=== PATIENT | female | born 1980 | race Caucasian/White ===

== ENCOUNTER 2019-10-02 15:36 | Emergency (ER) | payer OTHER, SELFPAY ==
[2019-10-02 15:39] VITALS: BP 129/82; PULSE 89; RESP 14; TEMP 36.9; O2SAT 98
--- NOTE | 2019-10-02 17:27 | ED.SKABFB ---
HPI - Skin/Abscess/Foreign Bdy <GUI Magaña - Last Filed: 10/02/19 17:59> General Chief complaint: Skin/Abscess/Foreign Body Stated complaint: RASH Time Seen by Provider: 10/02/19 16:12 Source: patient Mode of arrival: Ambulatory Limitations: no limitations History of Present Illness HPI narrative: The patient is a 39-year-old female current smoker with history of to come up to presents with a chief complaint of a rash on the left side of her neck. She states it appeared 2-3 days ago. She states it is very painful, and she has shooting pain in the area of her rash. She complains of fatigue, generalized malaise, transient wooziness. She denies any fevers nausea vomiting or diarrhea. She denies any chest pain or shortness of breath. she has not followed up with primary care provider. She denies any rash in or near her eyes. Related Data Previous Rx's Medication Instructions Recorded norethindrone (contraceptive) 0.35 mg PO QDAY #1 pac 04/13/18 [Rain] prednisone 50 mg PO DAILY #5 tab 10/02/19 valacyclovir 1,000 mg PO TID 7 Days #21 tab 10/02/19 Allergies Allergy/AdvReac Type Severity Reaction Status Date / Time No Known Drug Allergies Allergy Unknown Unverified 02/09/18 12:44 [NO KNOWN DRUG ALLERGIES] Review of Systems <[facility] - Last Filed: 10/02/19 17:59> Review of Systems Narrative: GENERAL: See HPI HEENT: Denies sinus pain, ear pain, sore throat, difficulty swallowing, dizziness. RESPIRATORY: Denies dyspnea, cough, wheezing, hemoptysis, sputum. CARDIOVASCULAR: Denies chest pain, palpitations, orthopnea, edema, GASTROINTESTINAL: Denies nausea, vomiting, abdominal pain, diarrhea, constipation, melena. : Denies dysuria, frequency, incontinence, hematuria, urinary retention. MUSCULOSKELETAL: denies weakness, joint pain, or bony pain SKIN: See HPI NEUROLOGIC: Denies weakness, headache, numbness, change in speech, confusion, seizures, incoordination. PSYCHIATRIC: No concerning psychosocial issues. 12 point review of systems is negative except for those stated above Patient History <SORAIDA Magaña-BC - Last Filed: 10/02/19 17:59> Social History Smoking Status: Current every day smoker alcohol intake frequency: holidays/special occasions only Exam <SORAIDA Magaña- - Last Filed: 10/02/19 17:59> Narrative Exam Narrative: GENERAL: This is a well-nourished, well-developed patient, no acute distress HEAD: Atraumatic. Normocephalic. No temporal or scalp tenderness. EYES: Pupils equal round and reactive. Extraocular motions intact. No scleral icterus. No injection or drainage. ENT: Nose without bleeding, purulent drainage or septal hematoma. Throat without erythema, tonsillar hypertrophy or exudate. Uvula midline. Airway patent. NECK: Trachea midline. No JVD or lymphadenopathy. Supple, nontender, no meningeal signs. CARDIOVASCULAR: Regular rate and rhythm without murmurs, gallops, or rubs. RESPIRATORY: Clear to auscultation. Breath sounds equal bilaterally. No wheezes, rales, or rhonchi. No cough. No increased respiratory effort. No accessory muscle use. EXTREMITIES: No clubbing, cyanosis, or edema. No joint tenderness, effusion, or edema noted. BACK: Nontender without deformity or crepitance. No flank tenderness. NEURO: AOx3. SKIN: Diffuse vesicular lesions noted on right side of head down hairline to neck. Some crusting noted. no lesions near eye. No drainage. Initial Vital Signs Initial Vital Signs: Vital Signs Temperature 98.5 F 10/02/19 15:39 Pulse Rate 89 10/02/19 15:39 Respiratory Rate 14 10/02/19 15:39 Blood Pressure 129/82 10/02/19 15:39 Pulse Oximetry 98 10/02/19 15:39 <Srinivas Nobles DO - Last Filed: 10/02/19 17:59> Initial Vital Signs Initial Vital Signs: Vital Signs Temperature 98.5 F 10/02/19 15:39 Pulse Rate 89 10/02/19 15:39 Respiratory Rate 14 10/02/19 15:39 Blood Pressure 129/82 10/02/19 15:39 Pulse Oximetry 98 10/02/19 15:39 Scores <GUI Magaña - Last Filed: 10/02/19 17:59> GCS She[place]har coma scale eye opening: Spontaneous [place] coma scale verbal response: Orientated [place] coma scale motor response: Obey commands [place] coma scale total score: 15 Course <Shila ShoemakerSORAIDA-BC - Last Filed: 10/02/19 17:59> Vital Signs Vital signs: Vital Signs - 8 hr 10/02/19 15:39 Temperature 98.5 F Pulse Rate 89 Respiratory Rate 14 Blood Pressure 129/82 Pulse Oximetry 98 <Srinivas NoblesDO - Last Filed: 10/02/19 17:59> Vital Signs Vital signs: Vital Signs - 8 hr 10/02/19 15:39 Temperature 98.5 F Pulse Rate 89 Respiratory Rate 14 Blood Pressure 129/82 Pulse Oximetry 98 MDM - Skin/Abscess/Foreign Bdy <Shila ShoemakerSORAIDA-BC - Last Filed: 10/02/19 17:59> MDM Narrative Medical decision making narrative: The patient is a 31-year-old female who presents with a chief complaint of a rash on the left side of her head present for the past few days. She complains of generalized fatigue and malaise accompanying the rash. exam indicates shingles. She is placed most likely on a prednisone burst. She has no evidence of rash in her eye or any ocular involvement, but I did discuss at length that she needs to follow up with primary care provider or come back to the emergency department if that occurs. Discussed coming back to the ER for any acute concerns. Discussed that shingles is easily communicable. Encouraged follow-up with primary care provider. Patient has no questions or concerns upon discharge and states understanding of return precautions as well as follow-up care. Discharge Plan Departure Patient Disposition: Home Clinical Impression: Shingles Qualifiers: Herpes zoster complications: without complications Qualified Code(s): B02.9 - Zoster without complications Discharge Date/Time: 10/02/19 16:58 Instructions: Shingles (Herpes Zoster) (Alternative Therapy), DI for Shingles Activity Restrictions/Additional Instructions: I have sent 2 prescriptions to [facility]-1 is for prednisone to help with your pain and the 2nd is an antiviral to help with the shingles You can use calamine lotion over the rash. Please follow up with primary care provider. Please come back to emergency department for any acute concerns. Please remember that if you have any rash near your eye, be evaluated as soon as possible Prescriptions: New valacyclovir 1 gram tablet 1,000 mg PO TID 7 Days Qty: 21 RF: 0 prednisone 50 mg tablet 50 mg PO DAILY Qty: 5 RF: 0 No Action norethindrone (contraceptive) [Rain] 0.35 mg tablet 0.35 mg PO QDAY Qty: 1 RF: 6 Referrals: [facility] [Provider Group] <Srinivas Nobles, DO - Last Filed: 10/02/19 17:59> Sign Out Provider Sign Out Attestation: Dr Nobles Co-Sign Statement: I was available for consultation during this patient's emergency department visit. This chart is signed by myself for administrative purposes only. I did not have direct contact with this patient during this visit. They were seen independently by the APC.
== END 2019-10-02 16:58 | disposition home or self-care (01) ==
PROVIDERS: Emergency Provider Nurse Practitioner Family
DX: B02.9 Zoster without complications (principal)
CPT/HCPCS: 99282; 99283

== ENCOUNTER → 2021-07-18 10:59 | Outpatient (CLI) | payer OTHER, SELFPAY ==
[2021-07-18 13:03] LABS: Add Manual Diff / Slide Review NO; Basophils Absolute Auto 100 /uL (0-100); Basophils Percent Auto 0.9 % (0-2); Eosinophils Absolute Auto 300 /uL (0-450); Eosinophils Percent Auto 3.4 % (2-4); Hematocrit 40.4 % (36-46); Hemoglobin 13.6 g/dL (12.0-16.0); Lymphocytes Absolute Auto 2100 /uL (1100-4500); Lymphocytes Percent Auto 27.1 % (25-40); Mean Corpuscular HGB Conc 33.8 % (30-36); Mean Corpuscular Hemoglobin 32.7 PG (26-34); Mean Corpuscular Volume 96.9 fL (80-100); Monocytes Absolute Auto 600 /uL (0-900); Monocytes Percent Auto 7.8 % (3-14); Neutrophils Absolute Auto 4600 /uL (1500-7000); Neutrophils Percent Auto 60.8 % (50-75); Platelet Count 212 X10^3/uL (150-400); Red Blood Cell Count 4.17 X10^6/uL (4.0-5.2); Red Cell Distribution Width 12.6 % (11.6-14.8); White Blood Cell Count 7.6 X10^3/uL (4.5-11.0)
[2021-07-18 13:22] LABS: Alanine Aminotransferase 36 IU/L (<35); Albumin 4.3 g/dL (3.5-5.0); Albumin Globulin Ratio 1.6 (1.0-2.8); Alkaline Phosphatase 71 U/L (38-126); Aspartate Aminotransferase 42 IU/L (14-36); BUN Creatinine Ratio 17.6 (6-22); Bilirubin Total 0.4 mg/dL (0.2-1.3); Blood Urea Nitrogen 13 mg/dL (7-17); Calcium 9.3 mg/dL (8.4-10.2); Carbon Dioxide 29 mmol/L (22-32); Chloride 105 mmol/L (98-107); Cholesterol 190 mg/dL (140-199); Estimated Glomerular Filt Rate > 60.0 mL/min (>60); Globulin 2.7 g/dL (1.7-4.1); Glucose 86 mg/dL (70-100); HDL Cholesterol 77 mg/dL (40-60); HEMOLYSIS < 15 (0-50); LDL Cholesterol Calculated 77 mg/dL (<100); Potassium 4.1 mmol/L (3.4-5.1); Sodium 139 mmol/L (137-145); Triglycerides 181 mg/dL (35-150)
[2021-07-18 13:24] LABS: Hemoglobin A1C% w Est Avg Glu 4.8 % (4.0-6.0)
== END ==
PROVIDERS: PCP Family Medicine; Referring Provider Family Medicine; Visit Provider Family Medicine
DX: G43.909 Migraine, unspecified, not intractable, without status migrainosus (principal); F90.9 Attention-deficit hyperactivity disorder, unspecified type; M79.671 Pain in right foot; M79.672 Pain in left foot; F41.8 Other specified anxiety disorders
CPT/HCPCS: 36415; 80053; 80061; 83036; 84443; 85025

== ENCOUNTER 2022-06-28 19:18 | Emergency (ER) | payer OTHER, SELFPAY ==
[2022-06-28 19:29] VITALS: BP 147/89; PULSE 91; RESP 20; TEMP 36.3; O2SAT 100; BMI 28.2
--- NOTE | 2022-06-28 22:25 | ED_ITS ---
HPI - Eye Problem General Chief complaint: Eye Problems Stated complaint: Something in her eye Time Seen by Provider: 06/28/22 20:32 Source: patient Mode of arrival: Ambulatory History of Present Illness HPI Narrative: 41-year-old female daily smoker with history of chronic back pain, anorexia and ADHD presents with her for evaluation of left eye foreign body. She states that she is quite concerned that she may have a parasite and has seen multiple doctors and has had multiple evaluations for this. She had most recently been at the walk-in clinic and was given reassurance but came here for further evaluation. She states that she had concern about possible exposure to pinworms and had taken an [id number] medication and soon thereafter developed a discomfort in her left eye with some redness and drainage. She sta crystal that she did a significant amount of research and found that pinworms can exit through the eye and this is her concern. She denies any UV exposure or chemical exposure. She does wear contacts but they are not currently in. Related Data Home Medications Medication Instructions Recorded Confirmed clonidine HCl 0.1 mg tablet 0.1 mg PO DAILY PRN 04/09/21 09/09/21 lisdexamfetamine 70 mg capsule 70 mg PO DAILY 04/09/21 09/09/21 propranolol 10 mg tablet 10 mg PO DAILY 04/09/21 09/09/21 Previous Rx's Medication Instructions Recorded Prefest 1 mg (15)/1 mg-0.09 mg 1 tab PO DAILY #180 tabs 02/02/22 (15) tablet (estradiol-norgestimate) hydroxyzine HCl 25 mg tablet 25 mg PO TID PRN itching #30 tabs 06/15/22 permethrin 5 % topical cream 1 applic topical Q14D 2 doses #60 06/15/22 grams Allergies Allergy/AdvReac Type Severity Reaction Status Date / Time No Known Drug Allergies Allergy Unknown Verified 06/28/22 19:38 [NO KNOWN DRUG ALLERGIES] Review of Systems Review of Systems Narrative: GENERAL: Denies chills, fatigue, malaise, fever, sweats. HEENT: See HPI RESPIRATORY: Denies dyspnea, cough, wheezing, hemoptysis, sputum. CARDIOVASCULAR: Denies chest pain, palpitations, orthopnea, edema, GASTROINTESTINAL: Denies nausea, vomiting, abdominal pain, diarrhea, constipation, melena. : Denies dysuria, frequency, incontinence, hematuria, urinary retention. MUSCULOSKELETAL: denies weakness, joint pain, or bony pain SKIN: Denies rash, skin lesions, or other NEUROLOGIC: Denies weakness, headache, numbness, change in speech, confusion, seizures, incoordination. PSYCHIATRIC: No concerning psychosocial issues. 12 point review of systems is negative except for those stated above Patient History Medical History Abnormal Pap smear of cervix Acne ADHD Ankle pain Anorexia nervosa Chicken pox Chronic back pain Delusions of parasitosis Eczema Foot pain Fractures Headache Heavy menstrual period Migraine MRSA (methicillin resistant Staphylococcus aureus) Ovarian cyst Painful menstrual periods Scabies Surgical History Delivered by section Social History Smoking Status: Current every day smoker Smoking Status: Current every day smoker alcohol intake frequency: holidays/special occasions only Substance Use Type: does not use Exam Narrative Exam Narrative: GEN: AOx3 and in mild distress EYES: Pupils are equal, round, and reactive to light and accommodation. Extraoccular muscles are intact bilaterally. Left eye with slight injection, perhaps mild chemosis. No foreign body noted, upper lid everted and nothing visualized. Fluorescein instilled in no dye uptake is noted. Visual acuity noted in chart. Of note, patient had complete resolution of discomfort after 1 drop of proparacaine CHEST: Lungs are clear to auscultation bilaterally and free of wheezes, rales, or rhonchi. Heart rate is regular rhythm, there are no murmurs, clicks, rubs, or gallops. There is no chest wall tenderness. ABD: Abdomen is soft and nontender. There is no guarding or rebound. Bowel sounds are normal in all 4 quadrants. There is no mass or organomegaly. EXT: Full painless ROM of all extremities with no loss of sensation or strength. SKIN: Warm, pink, and dry. No erythema or rash Initial Vital Signs Initial Vital Signs: Vital Signs Temperature 97.3 F L 06/28/22 19:29 Pulse Rate 91 H 06/28/22 19:29 Respiratory Rate 20 06/28/22 19:29 Blood Pressure 147/89 H 06/28/22 19:29 Pulse Oximetry 100 06/28/22 19:29 Oxygen Delivery Method 06/28/22 19:29 Course Orders Ordered: Discontinued Medications Fluorescein Sodium (Fluorescein 1 Mg Strip) 1 mg EYE-RIGHT NOW ONE Stop: 06/28/22 20:33 Last Admin: 06/28/22 22:54 Dose: 1 mg Documented By: AT Ofloxacin (Ofloxacin 0.3% Ophth 5 Ml) 1 drops EYE-LEFT NOW ONE Stop: 06/28/22 22:41 Last Admin: 06/28/22 22:47 Dose: 1 drops Documented By: AT Proparacaine HCl (Proparacaine 0.5% Ophth Ellen) 1 drops EYE-RIGHT NOW ONE Stop: 06/28/22 20:33 Last Admin: 06/28/22 22:36 Dose: 1 drop Documented By: AT Vital Signs Vital signs: Vital Signs - 8 hr 06/28/22 19:29 Temperature 97.3 F L Pulse Rate 91 H Respiratory Rate 20 Blood Pressure 147/89 H Pulse Oximetry 100 Oxygen Delivery Method Room Air Discharge Plan Departure Patient Disposition: Home Clinical Impression: Acute conjunctivitis, left eye Instructions: DI for Conjunctivitis Activity Restrictions/Additional Instructions: *You have been diagnosed with [left eye conjunctivitis ] *What to do: *Please use 1-2 drops of the ofloxacin antibiotic drop in your left eye every 4 hours while awake until better. Additionally, as we discussed I gave you proparacaine which helps with the pain and discomfort. I diluted it down to 0.05% and you may use 1-2 drops of this in your left eye every 30-60 minutes as needed *Please follow up with your eye doctor 2-3 days, call for an appointment. Let them know you were seen in the Emergency Department and that we ask that you be seen in follow up. *Do not wear your contacts until your symptoms improve *Return to Emergency Department if you should have any new, worsening or concerning symptoms Prescriptions: No Action Prefest 1 mg (15)/1 mg- 0.09 mg (15) tablet 1 tab PO DAILY Qty: 180 3RF Vyvanse 70 mg capsule 70 mg PO DAILY propranolol 10 mg tablet 10 mg PO DAILY clonidine HCl 0.1 mg tablet 0.1 mg PO DAILY PRN hydroxyzine HCl 25 mg tablet 25 mg PO TID PRN (Reason: itching) Qty: 30 1RF permethrin 5 % cream 1 applic topical Q14D Qty: 60 1RF Rx Instructions: apply second treatment 14 days after first treatment if live lice remain Referrals: Bill Pineda MD [Primary Care Provider] - Visit Report Forms: Patient Portal/API
[2022-06-28] MEDS: PROPARACAINE 0.5% OPHTH SOL 1 DROPS EYE-RIGHT (22:36)
[2022-06-28] MEDS: OFLOXACIN 0.3% OPHTH 5 ML 1 DROPS EYE-LEFT (22:47)
[2022-06-28] MEDS: FLUORESCEIN 1 MG STRIP EYE-RIGHT (22:54)
== END 2022-06-28 22:56 | disposition home or self-care (01) ==
PROVIDERS: Emergency Provider Emergency Medicine; PCP Family Medicine
DX: H10.32 Unspecified acute conjunctivitis, left eye (principal)
CPT/HCPCS: 99282

== ENCOUNTER → 2022-07-03 12:45 | Outpatient (CLI) | payer OTHER, SELFPAY ==
[2022-07-03 18:04] LABS: Add Manual Diff / Slide Review NO; Basophils Absolute Auto 100 /uL (0-100); Basophils Percent Auto 1.2 % (0-2); Eosinophils Absolute Auto 500 /uL (0-450); Eosinophils Percent Auto 6.2 % (2-4); Hematocrit 38.3 % (36-46); Lymphocytes Absolute Auto 2100 /uL (1100-4500); Lymphocytes Percent Auto 26.3 % (25-40); Mean Corpuscular HGB Conc 33.8 % (30-36); Mean Corpuscular Hemoglobin 32.6 PG (26-34); Mean Corpuscular Volume 96.2 fL (80-100); Monocytes Absolute Auto 600 /uL (0-900); Monocytes Percent Auto 7.8 % (3-14); Neutrophils Absolute Auto 4800 /uL (1500-7000); Neutrophils Percent Auto 58.5 % (50-75); Platelet Count 238 X10^3/uL (150-400); Red Blood Cell Count 3.99 X10^6/uL (4.0-5.2); Red Cell Distribution Width 12.1 % (11.6-14.8); White Blood Cell Count 8.1 X10^3/uL (4.5-11.0)
[2022-07-03 18:24] LABS: Alanine Aminotransferase 44 IU/L (<35); Albumin 3.9 g/dL (3.5-5.0); Albumin Globulin Ratio 1.3 (1.0-2.8); Alkaline Phosphatase 71 U/L (38-126); Aspartate Aminotransferase 36 IU/L (14-36); BUN Creatinine Ratio 8.1 (6-22); Bilirubin Total 0.3 mg/dL (0.2-1.3); Blood Urea Nitrogen 6 mg/dL (7-17); C-Reactive Protein Quant 0.6 mg/dL (<1.0); Calcium 8.7 mg/dL (8.4-10.2); Carbon Dioxide 30 mmol/L (22-32); Chloride 103 mmol/L (98-107); Estimated Glomerular Filt Rate > 60 mL/min (>60); Globulin 2.9 g/dL (1.7-4.1); Glucose 108 mg/dL (70-100); HEMOLYSIS < 15 (0-50); Potassium 3.5 mmol/L (3.4-5.1); Sodium 137 mmol/L (137-145); Total Protein 6.8 g/dL (6.3-8.2)
[2022-07-03 18:50] LABS: Erythrocyte Sedimentation Rate 3 MM/HR (0-20)
[2022-07-03 18:53] LABS: TSH w/ Reflex to FT4 1.58 uIU/mL (0.47-4.68)
== END ==
PROVIDERS: PCP Family Medicine; Referring Provider Pediatrics; Visit Provider Pediatrics
DX: M25.511 Pain in right shoulder (principal); F90.9 Attention-deficit hyperactivity disorder, unspecified type; G43.909 Migraine, unspecified, not intractable, without status migrainosus; L29.9 Pruritus, unspecified
CPT/HCPCS: 36415; 80053; 84443; 85025; 85651; 86140

== ENCOUNTER → 2022-07-07 12:02 | Outpatient (CLI) | payer OTHER, SELFPAY ==
[2022-07-07 14:19] LABS: Occult Blood 1 Negative (Negative); Occult Blood 2 Negative (Negative); Occult Blood 3 Negative (Negative)
== END ==
PROVIDERS: Pediatrics; PCP Family Medicine; Referring Provider Family Medicine; Visit Provider Family Medicine
DX: M25.511 Pain in right shoulder (principal); R11.0 Nausea; R19.7 Diarrhea, unspecified
CPT/HCPCS: 82270; 87045; 87177; 87899

== ENCOUNTER 2022-09-25 16:16 | Emergency (ER) | payer OTHER, SELFPAY ==
[2022-09-25 16:34] VITALS: BP 115/67; PULSE 79; RESP 18; TEMP 36.3; O2SAT 100; BMI 26.6
--- NOTE | 2022-09-25 16:39 | DI.RAD.S_ITS ---
PROCEDURE: XR ANKLE LT MIN 3V INDICATIONS: Fall, swelling, bruising TECHNIQUE: 3 views of the ankle were acquired. COMPARISON: None. FINDINGS: Bones: Possible osseous fragment adjacent to the navicular bone. No dislocations. Ankle mortise is normally aligned. No suspicious bony lesions. Small plantar calcaneal spur. Soft tissues: Swelling at the lateral malleolus. No tibiotalar joint effusion. Achilles tendon appears normal. IMPRESSION: Possible avulsion fracture near the navicular bone. Lateral malleolus swelling. Dictated by: Galileo Patel M.D. on 09/25/2022 at 17:24 Approved by: Galileo Patel M.D. on 09/25/2022 at 17:26
--- NOTE | 2022-09-25 19:15 | PC.NURSE ---
pt states she stepped in a hole at home and fell, c/o pain in the left ankle and foot,with swelling noted to the outer part of the foot, no obvious deformity noted
--- NOTE | 2022-09-25 19:16 | DI.RAD.S_ITS ---
PROCEDURE: XR FOOT LT MIN 3V INDICATIONS: navicular fx ? TECHNIQUE: 3 views of the foot were acquired. COMPARISON: [facility], CR, XR ANKLE LT MIN 3V, 09/25/2022, 16:43. FINDINGS: Bones: No fractures or dislocations. No suspicious bony lesions. Mild degenerative joint disease. Node is a os peroneum. Calcaneal spurring. Probably bipartite lateral sesamoid. Soft tissues: No tibiotalar joint effusion. Achilles tendon appears normal. IMPRESSION: 1. No navicular fracture is identified. If clinical symptoms persist or clinical suspicion for pathology is high, a repeat examination in 7-10 days, or advanced imaging such as CT or MRI is suggested for further evaluation. 2. Mild degenerative joint disease. 3. Probably a bipartite lateral sesamoid. If there is focal pain and tenderness, MRI would be helpful to assess sesamoid dysfunction. Dictated by: Ilir Carolina M.D. on 09/25/2022 at 19:42 Approved by: Ilir Carolina M.D. on 09/25/2022 at 19:48
--- NOTE | 2022-09-25 19:18 | ED.LOWEXIN ---
HPI - Extremity Injury (Lower) General Chief Complaint: Extremity Injury, Lower Stated Complaint: Twisted left ankle Time Seen by Provider: 09/25/22 19:12 Source: patient Mode of arrival: Wheelchair History of Present Illness HPI Narrative: Patient is a 42-year-old female with noncontributory past medical history who presents with left foot and ankle pain. She states she was walking in her backyard when she tripped in a hole. She has been unable to ambulate. She has significant pain and swelling on the lateral side. The knee is minimally tender. No other injury. Related Data Home Medications Medication Instructions Recorded Confirmed clonidine HCl 0.1 mg tablet 0.1 mg PO DAILY PRN 04/09/21 09/09/21 lisdexamfetamine 70 mg capsule 70 mg PO DAILY 04/09/21 09/09/21 propranolol 10 mg tablet 10 mg PO DAILY 04/09/21 09/09/21 Previous Rx's Medication Instructions Recorded Prefest 1 mg (15)/1 mg-0.09 mg 1 tab PO DAILY #180 tabs 02/02/22 (15) tablet (estradiol-norgestimate) hydroxyzine HCl 25 mg tablet 25 mg PO TID PRN itching #30 tabs 06/15/22 permethrin 5 % topical cream 1 applic topical Q14D 2 doses #60 06/15/22 grams ondansetron HCl 4 mg tablet 4 mg PO TID PRN nausea and 07/03/22 vomiting #30 tabs hydrocodone 5 mg-acetaminophen 325 1 tab PO Q6H PRN pain #10 tabs 09/25/22 mg tablet Allergies Allergy/AdvReac Type Severity Reaction Status Date / Time No Known Drug Allergies Allergy Unknown Verified 09/25/22 16:34 [NO KNOWN DRUG ALLERGIES] Review of Systems Review of Systems Narrative: GENERAL: Denies chills,fever HEENT: Denies throat pain RESPIRATORY: Denies dyspnea, cough, wheezing CARDIOVASCULAR: Denies chest pain, palpitations GASTROINTESTINAL: Denies nausea, vomiting MUSCULOSKELETAL: See HPI SKIN: No rash, no laceration, no pruritus NEUROLOGIC: Denies weakness, dizziness, headache, numbness 8 point review of systems is negative except for those stated above and HPI Patient History Medical History Abnormal Pap smear of cervix Acne ADHD Ankle pain Anorexia nervosa Chicken pox Chronic back pain Delusions of parasitosis Diarrhea Eczema Foot pain Fractures Headache Heavy menstrual period Itching Migraine MRSA (methicillin resistant Staphylococcus aureus) Nausea Ovarian cyst Painful menstrual periods Pruritus Scabies Shoulder pain, right Surgical History Delivered by section Social History Smoking Status: Current every day smoker Smoking Status: Current every day smoker tobacco type: vaping alcohol intake frequency: 0-2 drinks per day Substance Use Type: does not use Exam Initial Vital Signs Initial Vital Signs: Vital Signs Temperature 97.3 F L 09/25/22 16:34 Pulse Rate 79 09/25/22 16:34 Respiratory Rate 18 09/25/22 16:34 Blood Pressure 115/67 09/25/22 16:34 Pulse Oximetry 100 09/25/22 16:34 Oxygen Delivery Method 09/25/22 16:34 GENERAL: Alert 42-year-old female appears uncomfortable CARDIOVASCULAR: peripheral pulses in tact, cap refill <2 sec RESPIRATORY: No respiratory distress, speaks in full sentences without difficulty EXTREMITIES: Normal range of motion, no clubbing or edema. Neurovascularly intact Left foot lateral swelling and contusion noted distal pedal pulses intact Achilles intact. Able to move toes calf is soft. Knee is stable. NEUROLOGICAL: Cranial nerves II through XII grossly intact. Normal gait and speech. SKIN: Warm, dry, no petechiae, no rashes or lesions. Course Orders Ordered: Discontinued Medications Hydrocodone Bitart/Acetaminophen (Hydrocodone/Acet 5/325 Tablet) 1 tab PO NOW ONE Stop: 09/25/22 19:17 Last Admin: 09/25/22 19:24 Dose: 1 tab Documented By: MARIBEL Hydrocodone Bitart/Acetaminophen (Hydrocodone/Acet 5/325 Prepack) 1 bottle MISC SEEINSTR ONE Stop: 09/25/22 19:52 Last Admin: 09/25/22 20:31 Dose: 1 bottle Documented By: NAGA Vital Signs Vital signs: Vital Signs - 8 hr 09/25/22 16:34 Temperature 97.3 F L Pulse Rate 79 Respiratory Rate 18 Blood Pressure 115/67 Pulse Oximetry 100 Oxygen Delivery Method Room Air MDM - Extremity Injury (Lower) Imaging Data Extremity x-ray #1: Radiologist's Impression: XRay Report Signed Patient: Kimmy Villagomez MR#: [id number] : 1980 Acct:[id number] Age/Sex: 42 / F Date of Service: 09/25/22 Loc: ED Accession Number: [id number] ?? Procedure: XR ankle LT min 3V Ordering Provider: Srinivas Nobles D.O. PROCEDURE:? XR ANKLE LT MIN 3V ? INDICATIONS:? Fall, swelling, bruising ? TECHNIQUE:? 3 views of the ankle were acquired.? ? COMPARISON:? None. ? FINDINGS:? ? Bones:? Possible osseous fragment adjacent to the navicular bone.? No dislocations.? Ankle mortise is normally aligned.? No suspicious bony lesions.? Small plantar calcaneal spur. ? Soft tissues:? Swelling at the lateral malleolus.? No tibiotalar joint effusion.? Achilles tendon appears normal.? ? ? IMPRESSION:? Possible avulsion fracture near the navicular bone.? Lateral malleolus swelling. ? ? Dictated by: Galileo Patel M.D. on 09/25/2022 at 17:24 ?? Extremity x-ray #2: Radiologist's Impression: [id number] XRay Report Signed Patient: Kimmy Villagomez MR#: [id number] : 1980 Acct:[id number] Age/Sex: 42 / F Date of Service: 09/25/22 Loc: ED Accession Number: [id number] ?? Procedure: XR foot LT min 3V Ordering Provider: Alisha Zimmerman D.O. PROCEDURE:? XR FOOT LT MIN 3V ? INDICATIONS:? navicular fx ? ? TECHNIQUE:? 3 views of the foot were acquired.? ? COMPARISON:? [facility], CR, XR ANKLE LT MIN 3V, 09/25/2022, 16:43. ? FINDINGS:? ? Bones:? No fractures or dislocations.? No suspicious bony lesions.? Mild degenerative joint disease.? Node is a os peroneum.? Calcaneal spurring.? Probably bipartite lateral sesamoid. ? Soft tissues:? No tibiotalar joint effusion.? Achilles tendon appears normal.? ? ? IMPRESSION:? ? 1. No navicular fracture is identified.? If clinical symptoms persist or clinical suspicion for pathology is high, a repeat examination in 7-10 days, or advanced imaging such as CT or MRI is suggested for further evaluation. ? 2. Mild degenerative joint disease. ? 3. Probably a bipartite lateral sesamoid.? If there is focal pain and tenderness, MRI would be helpful to assess sesamoid dysfunction.? ? ? Dictated by: Ilir Carolina M.D. on 09/25/2022 at 19:42 ? ? MDM Narrative Medical decision making narrative: Patient had injury with some mild swelling and bruising. Initial ankle x-ray showed possible avulsion fracture of the navicular bone however dedicated foot x-ray does not show any actual fracture. Her foot is soft no evidence of compartment syndrome. sHe is given orthopedic shoe crutches and pain medication. His may require repeat imaging and 7-10 days if still having pain. Discharge Plan Departure Patient Disposition: Home Clinical Impression: Foot sprain, Ankle sprain Activity Restrictions/Additional Instructions: *You have been diagnosed with foot and ankle sprain *What to do: Increase activity as tolerated. Use a orthopedic shoe and crutches as needed. May start weight-bearing as tolerated. Elevate and ice 20-30 minutes at a time. May require repeat x-rays in 7-10 days with her PCP if you should have continued pain and swelling *Continue to take medications as directed Ibuprofen 600 mg every 6 hours if needed for ofhi-wa-ghornezp pain Valyermo 1 tablet every 6 hours only if needed for severe pain-->SENT TO [facility] IN [place] *Follow up with your primary care provider in 2-3 days or call [phone] *Return to ER if you should have increasing pain swelling redness or numbness or any new, worsening or concerning symptoms CONTROLLED SUBSTANCE DISCHARGE (Narcotoic/benzodiazepine/Flexeril/Phenergan) 1. You have been prescribed narcotic medications, it does have acetaminophen/Tylenol/paracetamol in it, DO NOT TAKE MORE THAN 4,00mg in 24 hours of Tylenol. TRAMADOL DOES NOT CONTAIN TYLENOL 2. Please understand that we cannot provide further refills of narcotics, benzodiazepines or controlled substances through the ED and her pain management will need to be through your provider. 3. While on these medications you cannot drive or operate heavy machinery. 4. You cannot sign legal documents or perform any duties such as this. 5. As long as you're taking opiate pain medications he should also be taking a stool softener such as Colace, Dulcolax, MiraLAX or prune juice, to help avoid constipation. Prescriptions: New hydrocodone-acetaminophen 5-325 mg tablet 1 tab PO Q6H PRN (Reason: pain) Qty: 10 0RF No Action Prefest 1 mg (15)/1 mg- 0.09 mg (15) tablet 1 tab PO DAILY Qty: 180 3RF Vyvanse 70 mg capsule 70 mg PO DAILY propranolol 10 mg tablet 10 mg PO DAILY clonidine HCl 0.1 mg tablet 0.1 mg PO DAILY PRN ondansetron HCl 4 mg tablet 4 mg PO TID PRN (Reason: nausea and vomiting) Qty: 30 0RF hydroxyzine HCl 25 mg tablet 25 mg PO TID PRN (Reason: itching) Qty: 30 1RF permethrin 5 % cream 1 applic topical Q14D Qty: 60 1RF Rx Instructions: apply second treatment 14 days after first treatment if live lice remain Referrals: Bill Pineda MD [Primary Care Provider] - Visit Report Forms: Patient Portal/API
[2022-09-25] MEDS: HYDROCODONE/ACET 5/325 TABLET 1 TAB PO (19:24)
[2022-09-25] MEDS: HYDROCODONE/ACET 5/325 PREPACK 1 BOTTLE MISC (20:31)
[2022-09-25 20:33] VITALS: BP 124/77; PULSE 80; RESP 18; O2SAT 97
== END 2022-09-25 20:38 | disposition home or self-care (01) ==
PROVIDERS: Emergency Provider Emergency Medicine; PCP Family Medicine
DX: S93.602A Unspecified sprain of left foot, initial encounter (principal); S93.402A Sprain of unspecified ligament of left ankle, initial encounter; X50.1XXA Overexertion from prolonged static or awkward postures, initial encounter
CPT/HCPCS: 73610; 73630; 99283; 99284

== ENCOUNTER → 2022-10-06 12:05 | Outpatient (CLI) | payer OTHER, SELFPAY ==
--- NOTE | 2022-10-06 12:06 | DI.RAD.S_ITS ---
PROCEDURE: XR ANKLE LT MIN 3V INDICATIONS: reeval L ankle and foot s/p injury. R/O fx TECHNIQUE: 3 views of the ankle were acquired. COMPARISON: [facility], CR, XR ANKLE LT MIN 3V, 09/25/2022, 16:43. FINDINGS: Bones: Linear calcification is again seen adjacent to lateral periphery of upper calcaneus concerning for avulsion injury in this area unchanged from prior study. No other fracture or dislocation. Ankle mortise is normally aligned. No suspicious bony lesions. Soft tissues: No tibiotalar joint effusion. Achilles tendon appears normal. IMPRESSION: Suggestion of avulsion injury involving lateral periphery of upper calcaneus/inferior talus not significantly changed from prior study. No new fracture or dislocation. Dictated by: Brennen Noguera M.D. on 10/06/2022 at 12:40 Approved by: Brennen Noguera M.D. on 10/06/2022 at 12:44
--- NOTE | 2022-10-06 12:06 | DI.RAD.S_ITS ---
PROCEDURE: XR FOOT LT MIN 3V INDICATIONS: reeval L ankle and foot s/p injury. R/O fx TECHNIQUE: 3 views of the foot were acquired. COMPARISON: [facility], CR, XR FOOT LT MIN 3V, 09/25/2022, 19:15. FINDINGS: Bones: Small fragment adjacent to plantar aspect of 1st metatarsal head is seen suggestive of age indeterminate injury in this area. No other fracture or dislocation. No metatarsal shaft fractures. Well-defined plantar calcaneal enthesophyte is again seen. Soft tissues: No tibiotalar joint effusion. Achilles tendon appears normal. IMPRESSION: Age indeterminate injury involving plantar aspect of 1st metatarsal head with small bony fragment. No other fracture or dislocation. Plantar calcaneal enthesophyte. No gross soft tissue abnormalities. Dictated by: Brennen Noguera M.D. on 10/06/2022 at 12:37 Approved by: Brennen Noguera M.D. on 10/06/2022 at 12:40
== END ==
PROVIDERS: PCP Family Medicine; Referring Provider Registered Nurse Diabetes Educator; Visit Provider Registered Nurse Diabetes Educator
DX: S93.402A Sprain of unspecified ligament of left ankle, initial encounter (principal); S93.602A Unspecified sprain of left foot, initial encounter; X58.XXXA Exposure to other specified factors, initial encounter
CPT/HCPCS: 73610; 73630

== ENCOUNTER → 2023-08-10 15:49 | Outpatient (CLI) | payer OTHER, SELFPAY ==
[2023-08-10 17:23] LABS: Add Manual Diff / Slide Review NO; Basophils Absolute Auto 100 /uL (0-100); Basophils Percent Auto 1.4 % (0-2); Eosinophils Absolute Auto 200 /uL (0-450); Hematocrit 39.1 % (36-46); Hemoglobin 13.6 g/dL (12.0-16.0); Lymphocytes Absolute Auto 1300 /uL (1100-4500); Mean Corpuscular HGB Conc 34.7 % (30-36); Mean Corpuscular Volume 98.2 fL (80-100); Monocytes Absolute Auto 600 /uL (0-900); Monocytes Percent Auto 11.2 % (3-14); Neutrophils Absolute Auto 3300 /uL (1500-7000); Neutrophils Percent Auto 60.4 % (50-75); Platelet Count 193 X10^3/uL (150-400); Red Blood Cell Count 3.98 X10^6/uL (4.0-5.2); White Blood Cell Count 5.5 X10^3/uL (4.5-11.0)
[2023-08-10 17:44] LABS: Alanine Aminotransferase 27 IU/L (<35); Albumin 4.2 g/dL (3.5-5.0); Albumin Globulin Ratio 1.3 (1.0-2.8); Alkaline Phosphatase 66 U/L (38-126); Aspartate Aminotransferase 51 IU/L (14-36); BUN Creatinine Ratio 8.3 (6-22); Bilirubin Total 0.6 mg/dL (0.2-1.3); Blood Urea Nitrogen 6 mg/dL (7-17); Calcium 9.2 mg/dL (8.4-10.2); Carbon Dioxide 25 mmol/L (22-32); Chloride 102 mmol/L (98-107); Cholesterol 202 mg/dL (140-199); Estimated Glomerular Filt Rate > 60 mL/min (>60); Globulin 3.3 g/dL (1.7-4.1); Glucose 121 mg/dL (70-100); HDL Cholesterol 90 mg/dL (40-60); HEMOLYSIS 15 (0-50); LDL Cholesterol Calculated 69 mg/dL (<100); Lipase 362 U/L (23-300); Potassium 3.2 mmol/L (3.4-5.1); Sodium 138 mmol/L (137-145); Total Protein 7.5 g/dL (6.3-8.2); Triglycerides 214 mg/dL (35-150)
== END ==
PROVIDERS: PCP Family Medicine; Referring Provider Family Medicine; Visit Provider Family Medicine
DX: R10.9 Unspecified abdominal pain (principal); R11.10 Vomiting, unspecified; R19.7 Diarrhea, unspecified
CPT/HCPCS: 36415; 80053; 80061; 83690; 85025

== ENCOUNTER → 2023-08-10 15:58 | Outpatient (CLI) | payer OTHER, SELFPAY ==
--- NOTE | 2023-08-10 17:21 | DI.CT.S_ITS ---
PROCEDURE: CT ABDOMEN PELVIS W CON INDICATIONS: abd pain, vomiting x 3 wks TECHNIQUE: After the administration of intravenous contrast, axial sections acquired from the lung bases to the pubic symphysis. Coronal and sagittal reformats were performed. For radiation dose reduction, the following was used: automated exposure control, adjustment of mA and/or kV according to patient size. COMPARISON: None. FINDINGS: Image quality: Excellent. Lung bases: Unremarkable. Heart: No significant findings. ABDOMEN: Liver: Hepatomegaly and mild to moderate steatosis. No mass. Gallbladder: Decompressed. Biliary ducts: Nondilated. Pancreas: Normal. Spleen: Normal. Adrenal Glands: Unremarkable. Kidneys and Ureters: Symmetric enhancement. No nephrolithiasis or hydronephrosis. No hydroureter. Stomach and Bowel: Stomach, small bowel loops, and colon are unremarkable. Normal appendix. Peritoneum: No abnormal intraperitoneal fluid. No free air. Ventral Wall: No hernias. Abdominal Nodes: No retroperitoneal or mesenteric adenopathy by size criteria. Vessels: Aorta and inferior vena cava are normal in size. PELVIS: Pelvic Organs: Anteverted uterus appears normal. No suspicious adnexal masses. Ovaries not seen. Bladder: Unremarkable. Pelvic Nodes: No enlarged lymph nodes. Miscellaneous: No hernias are seen. Bones: No suspicious mass. Degenerative disc and endplate change at L4-5.. IMPRESSION: 1. No acute process. 2. Hepatomegaly and mild to moderate hepatic steatosis. Dictated by: Delilah Banuelos M.D. on 08/10/2023 at 18:09 Approved by: Delilah Banuelos M.D. on 08/10/2023 at 18:13
== END ==
PROVIDERS: PCP Family Medicine; Referring Provider Family Medicine; Visit Provider Family Medicine
DX: R10.9 Unspecified abdominal pain (principal); R11.10 Vomiting, unspecified; R19.7 Diarrhea, unspecified; R16.0 Hepatomegaly, not elsewhere classified; K76.0 Fatty (change of) liver, not elsewhere classified
CPT/HCPCS: 36415; 74177; 80053; 80061; 83690; 85025

== ENCOUNTER → 2023-08-11 13:32 | Outpatient (CLI) | payer OTHER, SELFPAY ==
[2023-08-11 20:13] LABS: Clostridium Difficile Tox PCR Negative for C. diff (Negative)
[2023-08-17 19:14] LABS: Calprotectin, Stool < 5 ug/g (0-120)
== END ==
PROVIDERS: PCP Family Medicine; Referring Provider Family Medicine; Visit Provider Family Medicine
DX: R19.7 Diarrhea, unspecified (principal); R53.83 Other fatigue
CPT/HCPCS: 36415; 83993; 84443; 87045; 87493; 87899

== ENCOUNTER 2023-08-12 10:40 | Emergency (ER) | payer OTHER, SELFPAY ==
[2023-08-12] VITALS (12 sets, daily range): BP systolic 132–167; BP diastolic 85–101; PULSE 65–110; RESP 13–24; TEMP 36.7; O2SAT 95–100; BMI 25.0
[2023-08-12 11:15] LABS: Add Manual Diff / Slide Review NO; Basophils Absolute Auto 100 /uL (0-100); Basophils Percent Auto 2.2 % (0-2); Eosinophils Absolute Auto 200 /uL (0-450); Eosinophils Percent Auto 3.6 % (2-4); Hematocrit 39.6 % (36-46); Hemoglobin 13.7 g/dL (12.0-16.0); Lymphocytes Absolute Auto 1100 /uL (1100-4500); Lymphocytes Percent Auto 20.6 % (25-40); Mean Corpuscular HGB Conc 34.5 % (30-36); Mean Corpuscular Hemoglobin 34.1 PG (26-34); Mean Corpuscular Volume 98.6 fL (80-100); Monocytes Absolute Auto 600 /uL (0-900); Monocytes Percent Auto 11.7 % (3-14); Neutrophils Absolute Auto 3300 /uL (1500-7000); Neutrophils Percent Auto 61.9 % (50-75); Platelet Count 175 X10^3/uL (150-400); Red Blood Cell Count 4.02 X10^6/uL (4.0-5.2); Red Cell Distribution Width 12.9 % (11.6-14.8); White Blood Cell Count 5.3 X10^3/uL (4.5-11.0)
[2023-08-12 11:22] LABS: Appearance Urine UA CLEAR; Bilirubin Urine UA NEGATIVE (NEGATIVE); Color Urine UA YELLOW; Glucose Urine UA NEGATIVE (Negative); Ketones Urine UA NEGATIVE (NEGATIVE); Leukocyte Esterase Urine UA NEGATIVE (NEGATIVE); Nitrite Urine UA NEGATIVE (Negative); Occult Blood Urine UA NEGATIVE (Negative); Protein Urine UA NEGATIVE (Negative); Specific Gravity Urine UA <=1.005 (1.000-1.035); Urobilinogen Urine UA 0.2 E.U./dL (0.2)
[2023-08-12 11:26] LABS: Alanine Aminotransferase 33 IU/L (<35); Albumin 4.2 g/dL (3.5-5.0); Albumin Globulin Ratio 1.4 (1.0-2.8); Alkaline Phosphatase 68 U/L (38-126); Aspartate Aminotransferase 49 IU/L (14-36); BUN Creatinine Ratio 5.5 (6-22); Bilirubin Total 0.5 mg/dL (0.2-1.3); Blood Urea Nitrogen 4 mg/dL (7-17); Calcium 9.6 mg/dL (8.4-10.2); Carbon Dioxide 29 mmol/L (22-32); Chloride 103 mmol/L (98-107); Estimated Glomerular Filt Rate > 60 mL/min (>60); Globulin 2.9 g/dL (1.7-4.1); Glucose 91 mg/dL (70-100); HEMOLYSIS < 15 (0-50); Potassium 3.1 mmol/L (3.4-5.1); Sodium 140 mmol/L (137-145); Total Protein 7.1 g/dL (6.3-8.2)
[2023-08-12 11:32] LABS: Bacteria Urine None Seen; Culture Indicated Urine Cult Not Indicated; RBC Urine None Seen (0-5/HPF); Squamous Epithelial Cell Urine None Seen (0-5/HPF); WBC Urine None Seen (0-5/HPF)
--- NOTE | 2023-08-12 11:33 | ED_ITS ---
HPI - Allergic Reaction General Chief complaint: Allergic Reaction Stated complaint: Allergic reaction Time Seen by Provider: 08/12/23 10:41 Source: patient Mode of arrival: Ambulatory History of Present Illness HPI narrative: 42-year-old female with no reported past medical history presents by EMS from home for possible allergic reaction. Patient states that she has seen multiple urgent cares and emergency department's over weeks for uncontrollable itching. She states no diagnosis has been found. A few weeks ago patient also saw a GI doctor for nausea, bloating, diarrhea. She has a different doctor's appointment later this afternoon with an eye doctor for ?eye bulging and yellowing? that started earlier this week. She states that on her way to work today she felt like her throat was closing and she called 911. Prior to EMS arrival she took Benadryl, which improved her symptoms. By the time EMS arrived she denied any shortness of breath or throat issues Exposure: unknown Related Data Previous Rx's Medication Instructions Recorded omeprazole 20 mg capsule,delayed 20 mg PO DAILY #30 caps 08/10/23 release ondansetron 4 mg disintegrating 4 mg PO Q6-8H PRN nausea and 08/10/23 tablet vomiting #30 tabs epinephrine 0.3 mg/0.3 mL 0.3 mg (0.3 mL) IM Q5-15M PRN 08/12/23 injection, auto-injector (EpiPen) anaphylaxis #2 ea famotidine 20 mg tablet (Pepcid) 20 mg PO DAILY #30 tabs 08/12/23 methylprednisolone 4 mg tablets in 4 mg PO DAILY #21 ea 08/12/23 a dose pack (Medrol (Gene)) Allergies Allergy/AdvReac Type Severity Reaction Status Date / Time No Known Drug Allergies Allergy Unknown Verified 08/10/23 14:35 [NO KNOWN DRUG ALLERGIES] Review of Systems Review of Systems Narrative: CONSTITUTIONAL- Denies: fever, chills, fatigue HEENT- Reports: throat swelling (resolved), jaundice Denies: nosebleed, vision changes RESPIRATORY- Denies: shortness of breath, cough, wheezing CARDIAC- Denies: chest pain, edema, orthopnea GI- Reports: abdominal bloating, nausea, diarrhea Denies: abdominal pain, vomiting, constipation - Denies: frequency, dysuria, hematuria, flank pain MSK- Denies: extremity pain, extremity swelling, joint pain, joint swelling SKIN- Reports: itching Denies: rash, burn, swelling NEUROLOGICAL- Denies: headache, numbness, weakness, dizziness PSYCHIATRIC- Denies: anxiety, depression, suicidal ideation, homicidal ideation Patient History Medical History Abnormal Pap smear of cervix Acne ADHD Ankle pain Anorexia nervosa Chicken pox Chronic back pain Delusions of parasitosis Diarrhea Eczema Foot pain Fractures Headache Heavy menstrual period Itching Migraine MRSA (methicillin resistant Staphylococcus aureus) Nausea Ovarian cyst Painful menstrual periods Pruritus Scabies Shoulder pain, right Surgical History Delivered by section Social History Smoking Status: Former smoker Smoking Status: Former smoker tobacco type: vaping alcohol intake frequency: 0-2 drinks per day Substance Use Type: does not use Exam Initial Vital Signs Initial Vital Signs: Vital Signs Pulse Rate 74 08/12/23 10:50 Respiratory Rate 13 08/12/23 10:50 Pulse Oximetry 100 08/12/23 10:50 Const: Awake, alert, no acute distress, nontoxic appearing Eyes: PERRL, EOMI, conjunctiva normal ENT: Atraumatic, dentition normal, mucous membranes moist Cardiac: regular rate, regular rhythm RESP: unlabored, clear bilaterally, no wheezing GI: Atraumatic, soft, nontender, nondistended, no rebound, no guarding MSK: Atraumatic, full range of motion, pulses equal Skin: Warm, Dry, intact, no rashes Neuro: AO x3, CN II-XII grossly intact, moves all extremities Psych: affect normal, mood normal, not suicidal, not homicidal Course Course Course Narrative: Well appearing patient with multiple symtpoms, came in today for possible allergic reaction. Multiple ER visits for evaluation of itching, has already been evaluated by GI with CT scan 2 days ago - hepatic steatosis seen without other acute findings. Patient reports itching, however lungs are clear, no signs or symptoms of anaphylaxis. We will give allergy cocktail and will repeat labs. Orders Ordered: ED Orders 08/12/23 11:00 CBC Auto Diff [Complete Blood Count AUTO DIFF] Stat CMP [Comprehensive Metabolic Panel] Stat TSH [Thyroid Stimulating Hormone] Stat 08/12/23 11:16 UA Complete [Urinalysis and Microscopic] Stat Discontinued Medications Diphenhydramine HCl (Diphenhydramine 50 Mg/Ml Vial) 50 mg IV NOW ONE Stop: 08/12/23 11:26 Last Admin: 08/12/23 11:34 Dose: 50 mg Documented By: MARILOU Droperidol (Droperidol 5 Mg/2 Ml Vial) 2.5 mg IV NOW ONE Stop: 08/12/23 12:02 Last Admin: 08/12/23 12:11 Dose: 2.5 mg Documented By: MARILOU Famotidine (Famotidine 20 Mg/2 Ml Vial) 20 mg IV NOW YULI Last Admin: 08/12/23 11:35 Dose: 20 mg Documented By: MARILOU Methylprednisolone (Methylprednisolone 125 Mg/2 Ml Vial) 125 mg IV NOW ONE Stop: 08/12/23 11:26 Last Admin: 08/12/23 11:35 Dose: 125 mg Documented By: MARILOU Reevaluation(s) Reevaluation #1: Laboratory work is reviewed, no acute abnormalities identified. Nursing reports that patient began to hyperventilate and complain of worsening itching despite allergy cocktail. Reevaluation #2: Symptoms improved after Haldol. Patient reassessed, I explained the results of all labs at bedside with patient and significant other. No obvious cause of pruritus identified, however vitals are normalized and no evidence of impending throat closure. We will discharge with EpiPen and steroid taper. Counseled to take daily Pepcid for anti allergy properties. She was encouraged to keep her primary and specialty follow up as needed for further investigation of her symptoms and complaints. Vital Signs Vital signs: Vital Signs - 8 hr 08/12/23 10:50 08/12/23 10:59 08/12/23 11:00 Temperature 98.1 F Pulse Rate 74 74 69 Respiratory Rate 13 18 15 Blood Pressure 167/101 H Pulse Oximetry 100 99 100 Oxygen Delivery Method Room Air 08/12/23 11:00 08/12/23 11:27 08/12/23 11:27 Temperature Pulse Rate 73 Respiratory Rate 20 Blood Pressure 167/101 H 151/91 H Pulse Oximetry 99 Oxygen Delivery Method 08/12/23 11:30 08/12/23 11:30 08/12/23 11:46 Temperature Pulse Rate 75 83 Respiratory Rate 22 19 Blood Pressure 145/87 H Pulse Oximetry 100 100 Oxygen Delivery Method 08/12/23 11:46 08/12/23 12:00 08/12/23 12:01 Temperature Pulse Rate 108 H Respiratory Rate 22 Blood Pressure 155/101 H 159/96 H Pulse Oximetry 100 Oxygen Delivery Method 08/12/23 12:01 08/12/23 12:20 08/12/23 12:20 Temperature Pulse Rate 110 H 82 Respiratory Rate 24 23 Blood Pressure 147/85 H Pulse Oximetry 100 98 Oxygen Delivery Method 08/12/23 12:30 08/12/23 12:30 08/12/23 12:46 Temperature Pulse Rate 66 65 Respiratory Rate 14 17 Blood Pressure 149/88 H Pulse Oximetry 95 95 Oxygen Delivery Method 08/12/23 12:46 08/12/23 13:00 08/12/23 13:00 Temperature Pulse Rate 65 Respiratory Rate 15 Blood Pressure 132/88 144/89 H Pulse Oximetry 96 Oxygen Delivery Method MDM - Allergic Reaction Differential Diagnosis Differential diagnosis: Likely anaphylaxis, allergic reaction and contact dermatitis Lab Data 08/12/23 11:00 08/12/23 11:00 Labs: Lab Results 08/12/23 08/12/23 Range/Units 11:00 11:16 WBC 5.3 (4.5-11.0) X10^3/uL RBC 4.02 (4.0-5.2) X10^6/uL Hgb 13.7 (12.0-16.0) g/dL Hct 39.6 (36-46) % MCV 98.6 (80-100) fL MCH 34.1 H (26-34) PG MCHC 34.5 (30-36) % RDW 12.9 (11.6-14.8) % Plt Count 175 (150-400) X10^3/uL Neut % (Auto) 61.9 (50-75) % Lymph % (Auto) 20.6 L (25-40) % [place] % (Auto) 11.7 (3-14) % Eos % (Auto) 3.6 (2-4) % Baso % (Auto) 2.2 H (0-2) % Neut # (Auto) 3300 (5778-4518) /uL Lymph # (Auto) 1100 (8430-9199) /uL Dougherty # (Auto) 600 (0-900) /uL Eos # (Auto) 200 (0-450) /uL Baso # (Auto) 100 (0-100) /uL Sodium 140 (137-145) mmol/L Potassium 3.1 L (3.4-5.1) mmol/L Chloride 103 (98-107) mmol/L Carbon Dioxide 29 (22-32) mmol/L BUN 4 L (7-17) mg/dL Creatinine 0.73 (0.52-1.04) mg/dL Estimated GFR > 60 (>60) mL/min BUN/Creatinine Ratio 5.5 L (6-22) Glucose 91 (70-100) mg/dL Calcium 9.6 (8.4-10.2) mg/dL Total Bilirubin 0.5 (0.2-1.3) mg/dL AST 49 H (14-36) IU/L ALT 33 (<35) IU/L Alkaline Phosphatase 68 (38-126) U/L Total Protein 7.1 (6.3-8.2) g/dL Albumin 4.2 (3.5-5.0) g/dL Globulin 2.9 (1.7-4.1) g/dL Albumin/Globulin Ratio 1.4 (1.0-2.8) TSH 2.19 (0.47-4.68) uIU/mL Urine Color Yellow Urine Appearance Clear Urine pH 5.0 (4.5-8.0) Ur Specific [place] <=1.005 (1.000-1.035) Urine Protein Negative (Negative) Urine Glucose (UA) Negative (Negative) g/dL Urine Ketones Negative (NEGATIVE) Urine Occult Blood Negative (Negative) Urine Nitrate Negative (Negative) Urine Bilirubin Negative (NEGATIVE) Urine Urobilinogen 0.2 (0.2) E.U./dL Ur Leukocyte Esterase Negative (NEGATIVE) Urine RBC None seen (0-5/HPF) Urine WBC None seen (0-5/HPF) Ur Squamous Epith Cells None seen (0-5/HPF) Urine Bacteria None seen (None) Ur Culture Indicated? Cult not indicated Discharge Plan Departure Patient Disposition: Home Clinical Impression: Allergic reaction Instructions: DI for Adverse Drug Reaction -- Allergic Activity Restrictions/Additional Instructions: KEEP YOUR APPOINTMENTS WITH ALL OF YOUR DOCTORS SCHEDULED. THE EPIPEN IS JUST IN CASE YOU START FEELING SHORTNESS OF BREATH OR THROAT SWELLING DUE TO ALLERGIES. YOU MAY ALSO TAKE A DAILY PEPCID, THIS MAY HELP YOUR ITCHING Prescriptions: New methylprednisolone [Medrol (Gene)] 4 mg tablets,dose pack 4 mg PO DAILY Qty: 21 0RF epinephrine [EpiPen] 0.3 mg/0.3 mL auto-injector 0.3 mg IM Q5-15M PRN (Reason: anaphylaxis) Qty: 2 0RF Rx Instructions: do not exceed 3 doses per episode famotidine [Pepcid] 20 mg tablet 20 mg PO DAILY Qty: 30 0RF No Action omeprazole 20 mg capsule,delayed release(DR/EC) 20 mg PO DAILY Qty: 30 5RF ondansetron 4 mg tablet,disintegrating 4 mg PO Q6-8H PRN (Reason: nausea and vomiting) Qty: 30 5RF Referrals: Bill Pineda MD [Primary Care Provider] - Stand Alone Forms: Patient Portal/API
[2023-08-12] MEDS: diphenhydrAMINE 50 MG/ML VIAL IV (11:34)
[2023-08-12] MEDS: methylPREDNISolone 125 MG/2 ML VIAL IV (11:35)
[2023-08-12] MEDS: FAMOTIDINE 20 MG/2 ML VIAL IV (11:35)
--- NOTE | 2023-08-12 11:50 | PC.NURSE ---
Pt HTN upon ED arrival, physician aware. No new orders.
[2023-08-12] MEDS: DROPERIDOL 5 MG/2 ML VIAL 2.5 MG IV (12:11)
[2023-08-12 12:18] LABS: Thyroid Stimulating Hormone 2.19 uIU/mL (0.47-4.68)
== END 2023-08-12 13:21 | disposition home or self-care (01) ==
PROVIDERS: Emergency Provider Emergency Medicine; PCP Family Medicine
DX: L29.9 Pruritus, unspecified (principal); T78.40XA Allergy, unspecified, initial encounter
CPT/HCPCS: 36415; 80053; 81001; 84443; 85025; 96374; 96375; 99284; J1200; J1790; J2930

== ENCOUNTER → 2023-12-27 10:04 | Outpatient (CLI) | payer OTHER, SELFPAY ==
[2023-12-27 11:09] LABS: Add Manual Diff / Slide Review NO; Basophils Absolute Auto 100 /uL (0-100); Basophils Percent Auto 1.4 % (0-2); Eosinophils Absolute Auto 200 /uL (0-450); Eosinophils Percent Auto 3.4 % (2-4); Hematocrit 40.7 % (36-46); Lymphocytes Absolute Auto 1300 /uL (1100-4500); Lymphocytes Percent Auto 20.5 % (25-40); Mean Corpuscular HGB Conc 34.4 % (30-36); Mean Corpuscular Hemoglobin 33.6 PG (26-34); Mean Corpuscular Volume 97.8 fL (80-100); Monocytes Absolute Auto 600 /uL (0-900); Monocytes Percent Auto 8.8 % (3-14); Neutrophils Absolute Auto 4300 /uL (1500-7000); Neutrophils Percent Auto 65.9 % (50-75); Platelet Count 243 X10^3/uL (150-400); Red Blood Cell Count 4.16 X10^6/uL (4.0-5.2); Red Cell Distribution Width 13.3 % (11.6-14.8); White Blood Cell Count 6.5 X10^3/uL (4.5-11.0)
[2023-12-27 11:49] LABS: Alanine Aminotransferase 20 IU/L (<35); Albumin 4.3 g/dL (3.5-5.0); Albumin Globulin Ratio 1.4 (1.0-2.8); Alkaline Phosphatase 74 U/L (38-126); Aspartate Aminotransferase 26 IU/L (14-36); BUN Creatinine Ratio 18.7 (6-22); Bilirubin Total 0.6 mg/dL (0.2-1.3); Blood Urea Nitrogen 14 mg/dL (7-17); C-Reactive Protein Quant < 0.5 mg/dL (<1.0); Calcium 8.8 mg/dL (8.4-10.2); Carbon Dioxide 22 mmol/L (22-32); Chloride 103 mmol/L (98-107); Estimated Glomerular Filt Rate > 60 mL/min (>60); Glucose 124 mg/dL (70-100); HEMOLYSIS < 15 (0-50); Sodium 136 mmol/L (137-145); Total Protein 7.3 g/dL (6.3-8.2)
[2023-12-27 11:50] LABS: Rheumatoid Factor < 8.6 IU/mL (<12.0)
[2023-12-27 12:07] LABS: Erythrocyte Sedimentation Rate 1 MM/HR (0-20)
[2023-12-27 12:09] LABS: Follicle Stimulating Hormone 11.3 mIU/mL
[2023-12-27 19:47] LABS: HIV 1 & 2 Ab/Ag 4th Gen Combo NEGATIVE (NEGATIVE)
[2023-12-29 17:05] LABS: CCP Antibodies IgG/IgA 5 units (0-19)
== END ==
PROVIDERS: Physician Assistant; PCP Family Medicine; Referring Provider Family Medicine; Visit Provider Family Medicine
DX: Z11.3 Encounter for screening for infections with a predominantly sexual mode of transmission (principal); R61 Generalized hyperhidrosis; R11.0 Nausea; R19.7 Diarrhea, unspecified; M25.60 Stiffness of unspecified joint, not elsewhere classified; M25.40 Effusion, unspecified joint; R12 Heartburn
CPT/HCPCS: 36415; 80053; 83001; 85025; 85651; 86140; 86200; 86430; 87389

== ENCOUNTER 2024-01-13 10:40 | Emergency (ER) | payer OTHER, SELFPAY ==
[2024-01-13 10:48] VITALS: BP 162/103; PULSE 87; RESP 15; TEMP 36.3; O2SAT 97; BMI 25.8
--- NOTE | 2024-01-13 11:20 | ED.HA ---
HPI - Headache <Adriana Lakhani PA-C - Last Filed: 01/13/24 14:12> General Chief Complaint: Headache Stated Complaint: sent by dr fihser mri been triaged already Time Seen by Provider: 01/13/24 11:04 Mode of arrival: Ambulatory History of Present Illness HPI Narrative: Patient is a 43-year-old female, patient of Dr. Pineda, with past medical history of anorexia, chronic back pain, migraines and ADHD who presents due to acute exacerbation of chronic headaches and neck stiffness and pain. She has been seen in the past for headaches by Dr. Pineda and prescribed cyclobenzaprine and naproxen. These help somewhat but the cyclobenzaprine makes her sleepy. Her headache is not significantly worse today but her neck is so stiff that it increases the pressure in the back of her head and she reports that she cannot turn her head to the left. She also complains of episodes of blurry vision and photophobia. This has been going on for months. Dr. Pineda ordered an MRI of the brain last week but it has not been done yet. Patient called the clinic nurse this morning who advised her to come to the emergency room due to her symptoms. Patient hopes she can get the brain MRI done today. She also endorses numbness and tingling in her hands and feet which has been going on for several days, no history of diabetes. She does report a history of concussion for which she did not receive any treatment. There has been no recent injury or trauma. She has never had any imaging of her neck. She denies fever or chills but has episodes of sweating, endorses weight fluctuation for the past 6 months of 10 pounds that is unintentional. Labs on 12/27/23 were without clinically significant abnormality. Related Data Previous Rx's Medication Instructions Recorded omeprazole 20 mg capsule,delayed 20 mg PO DAILY #30 caps 08/10/23 release epinephrine 0.3 mg/0.3 mL 0.3 mg (0.3 mL) IM Q5-15M PRN 08/12/23 injection, auto-injector (EpiPen) anaphylaxis #2 ea hydroxyzine HCl 25 mg tablet 25 mg PO BID PRN itching #30 tabs 10/14/23 cyclobenzaprine 5 mg tablet 5 mg PO BEDTIME PRN muscle spasm 12/06/23 #30 tabs naproxen 500 mg tablet (Naprosyn) 500 mg PO BID PRN pain #30 tabs 01/04/24 potassium chloride 10 mEq 10 meq PO DAILY #30 tabs 01/04/24 tablet,extended release(part/cryst) hydrocodone 5 mg-acetaminophen 325 1 tab PO Q6H PRN pain #10 tabs 01/13/24 mg tablet methocarbamol 1,000 mg tablet 1,000 mg PO TID #14 tabs 01/13/24 Allergies Allergy/AdvReac Type Severity Reaction Status Date / Time No Known Drug Allergies Allergy Unknown Verified 01/13/24 10:58 [NO KNOWN DRUG ALLERGIES] Review of Systems <Adriana Lakhani PA-C - Last Filed: 01/13/24 14:12> Review of Systems ROS Unobtainable: All systems reviewed & are unremarkable except as noted in HPI and below Patient History <Adriana Lakhani PA-C - Last Filed: 01/13/24 14:12> Medical History Prurigo nodularis Pruritus Nausea Diarrhea Shoulder pain, right Itching Delusions of parasitosis Scabies Acne Anorexia nervosa Headache Fractures Foot pain Chronic back pain Ankle pain MRSA (methicillin resistant Staphylococcus aureus) Chicken pox Painful menstrual periods Ovarian cyst Heavy menstrual period Abnormal Pap smear of cervix Eczema Migraine ADHD Surgical History Delivered by section Social History Smoking Status: Former smoker Smoking Status: Former smoker tobacco type: vaping alcohol intake frequency: holidays/special occasions only Substance Use Type: does not use Exam <Adriana Lakhani PA-C - Last Filed: 01/13/24 14:12> Narrative Exam Narrative: GENERAL: 43 year old patient appears stated age. Well-developed patient, holding her left neck. NEURO: Alert and oriented x3, mood/affect normal, normal speech, normal cognition. CN's (II-XII) grossly intact,. No gross motor deficit, 5/5 strength throughout, no gross sensory loss, normal movement, no pronator drift, normal gait. HEAD: Atraumatic. Normocephalic. EYES: Pupils equal round and reactive to light and accommodation. Extraocular motions intact. No scleral icterus. No injection or drainage. ENT: Nose without bleeding or purulent drainage. TMs pearly mason bilaterally. Airway patent. RESPIRATORY: No increased work of breathing SPINE: Patient with midline and paraspinal cervical spine tenderness. EXTREMITIES: No edema or joint tenderness. SKIN: No rash or erythema of visible areas Initial Vital Signs Initial Vital Signs: Vital Signs Temperature 97.3 F L 01/13/24 10:48 Pulse Rate 87 01/13/24 10:48 Respiratory Rate 15 01/13/24 10:48 Blood Pressure 162/103 H 01/13/24 10:48 Pulse Oximetry 97 01/13/24 10:48 Oxygen Delivery Method Room Air 01/13/24 10:48 <Srinivas Nobles DO - Last Filed: 01/13/24 14:36> Initial Vital Signs Initial Vital Signs: Vital Signs Temperature 97.3 F L 01/13/24 10:48 Pulse Rate 87 01/13/24 10:48 Respiratory Rate 15 01/13/24 10:48 Blood Pressure 162/103 H 01/13/24 10:48 Pulse Oximetry 97 01/13/24 10:48 Oxygen Delivery Method Room Air 01/13/24 10:48 Course <Adriana Lakhani PA-C - Last Filed: 01/13/24 14:12> Orders Ordered: ED Orders 01/13/24 11:32 XR cervical spine 2V or 3V Stat Discontinued Medications Ketorolac Tromethamine (Ketorolac 30 Mg/Ml Vial) 30 mg IM NOW ONE Stop: 01/13/24 11:35 Last Admin: 01/13/24 11:40 Dose: 30 mg Documented By: BANDAR Vital Signs Vital signs: Vital Signs - 8 hr 01/13/24 10:48 01/13/24 12:33 Temperature 97.3 F L Pulse Rate 87 79 Respiratory Rate 15 14 Blood Pressure 162/103 H 143/90 H Pulse Oximetry 97 98 Oxygen Delivery Method Room Air Room Air <Srinivas Nobles DO - Last Filed: 01/13/24 14:36> Orders Ordered: ED Orders 01/13/24 11:32 XR cervical spine 2V or 3V Stat Discontinued Medications Ketorolac Tromethamine (Ketorolac 30 Mg/Ml Vial) 30 mg IM NOW ONE Stop: 01/13/24 11:35 Last Admin: 01/13/24 11:40 Dose: 30 mg Documented By: BANDAR Vital Signs Vital signs: Vital Signs - 8 hr 01/13/24 10:48 01/13/24 12:33 Temperature 97.3 F L Pulse Rate 87 79 Respiratory Rate 15 14 Blood Pressure 162/103 H 143/90 H Pulse Oximetry 97 98 Oxygen Delivery Method Room Air Room Air MDM - Headache <Adriana Lakhani PA-C - Last Filed: 01/13/24 14:12> Imaging Data xr cspine: Radiologist's Impression: PROCEDURE: XR CERVICAL SPINE 2V OR 3V INDICATIONS: neck pain, no injury or trauma TECHNIQUE: 3 view(s) of the cervical spine were acquired. COMPARISON: None. FINDINGS: Bones: No fractures or dislocations to the T1 level. The lateral masses of C1 appear intact on the odontoid view. Reversal of the normal cervical lordosis. Moderate disc height loss at C6-7, C7-T1 and C5-6. Mild facet arthrosis, most prominent of the right side of C4-5 and C5-6. Soft tissues: No prevertebral soft tissue swelling. IMPRESSION: Moderate, multilevel degenerative disc disease and right greater than left facet arthrosis. Dictated by: Paramjit Galeana M.D. on 01/13/2024 at 12:02 Approved by: Paramjit Galeana M.D. on 01/13/2024 at 12:04 [facility] Narrative Medical decision making narrative: Multiple etiologies for patient's symptoms considered including, but not limited to: Migraine, tension headache, muscle strain, cervical spine injury or degeneration Patient presents with multiple acute on chronic concerns regarding her headaches and neck pain. Her neurologic exam is reassuring. Did obtain x-ray of her cervical spine which shows moderate, multilevel degenerative disc disease in right greater than left facet arthrosis. She is pending a brain MRI that has already been approved by her insurance but she has yet to schedule it. She was notified that she can go ahead and schedule. There is no indication for emergent MRI from the emergency room and no indication for head CT today given the chronicity of her complaints and normal neuro exam. Discussed pain control, we will switch from cyclobenzaprine to methocarbamol and a short course of hydrocodone given. Encouraged her to touch base with Dr. Pineda regarding acupuncture for neck pain. Patient states understanding of the plan and is satisfied with the plan. Patient's symptoms improved over duration of stay with above-stated therapies. Findings and discharge diagnosis discussed with patient/family followed by verbalization of understanding Return precautions discussed with patient/family whom verbalize understanding of diagnosis and plan Discharge Plan Departure Patient Disposition: Home Clinical Impression: Headache Qualifiers: Headache type: tension-type Headache chronicity pattern: chronic headache Intractability: intractable Qualified Code(s): G44.221 - Chronic tension-type headache, intractable Neck muscle strain Qualifiers: Encounter type: initial encounter Qualified Code(s): S16.1XXA - Strain of muscle, fascia and tendon at neck level, initial encounter Instructions: Neck Pain (Alternative Therapy), DI for Headache, DI for Chronic Neck Pain Activity Restrictions/Additional Instructions: *You have been diagnosed with chronic headache and neck pain. There is no evidence of abnormality in her neck x-ray that requires emergent evaluation although does show some degenerative changes. You hav a pre authorization for a brain MRI 3 your primary care that you can go ahead and schedule. Because you have this imaging coming up, I do not think it is necessary to do any other imaging of your brain today and we can not do the MRI directly from the emergency room today. I will prescribe a different muscle relaxer that you can try at home for your neck pain but do not combine this with the cyclobenzaprine or other sedative medications. I will also write a short prescription of a stronger pain medicine for you to use for more severe pain. *What to do: *Please continue to take your regular medications as directed. [x ] New medication prescriptions sent to your pharmacy: [facility] pharmacy [ ] New medication written as a paper prescription [ ] No new medications given *Please follow up with your primary care provider in 2-3 days, call for an appointment. Let them know you were seen in the Emergency Department and that we ask that you be seen in follow up. We will electronically transmit a record of today's note if your PCP is in our system *If you do not have a primary care provider please contact the [facility] Resource line at [phone]. They will ask some questions about your medical history and help get you set up with a doctor in the community. *Return to Emergency Department if you should have any new, worsening or concerning symptoms, such as [fever greater than 101 F, shaking chills, worsening pain, persistent vomiting or other concerning symptoms]. Prescriptions: New methocarbamol 1,000 mg tablet 1,000 mg PO TID Qty: 14 0RF hydrocodone-acetaminophen 5-325 mg tablet 1 tab PO Q6H PRN (Reason: pain) Qty: 10 0RF No Action naproxen [Naprosyn] 500 mg tablet 500 mg PO BID PRN (Reason: pain) Qty: 30 0RF potassium chloride 10 mEq tablet,ER particles/crystals 10 meq PO DAILY Qty: 30 0RF omeprazole 20 mg capsule,delayed release(DR/EC) 20 mg PO DAILY Qty: 30 5RF hydroxyzine HCl 25 mg tablet 25 mg PO BID PRN (Reason: itching) Qty: 30 0RF cyclobenzaprine 5 mg tablet 5 mg PO BEDTIME PRN (Reason: muscle spasm) Qty: 30 0RF epinephrine [EpiPen] 0.3 mg/0.3 mL auto-injector 0.3 mg IM Q5-15M PRN (Reason: anaphylaxis) Qty: 2 0RF Rx Instructions: do not exceed 3 doses per episode Referrals: Bill Pineda MD [Primary Care Provider] - Stand Alone Forms: Patient Portal/API ED Sign-out <Srinivas Nobles DO - Last Filed: 01/13/24 14:36> Cosign ED Attending Cosignature Attestation: Dr Nobles Co-Sign Statement: I was available for consultation during this patient's emergency department visit. This chart is signed by myself for administrative purposes only. I did not have direct contact with this patient during this visit. They were seen independently by the APC.
--- NOTE | 2024-01-13 11:31 | PC.NURSE ---
Patient was not aware that she needed an MRI until recently. DI was called to verify the order and her PCP office was also asked for an update on the order. PCP office stated the order has been authorized and is waiting for the patient to call them and set up the appointment.
--- NOTE | 2024-01-13 11:32 | DI.RAD.S_ITS ---
PROCEDURE: XR CERVICAL SPINE 2V OR 3V INDICATIONS: neck pain, no injury or trauma TECHNIQUE: 3 view(s) of the cervical spine were acquired. COMPARISON: None. FINDINGS: Bones: No fractures or dislocations to the T1 level. The lateral masses of C1 appear intact on the odontoid view. Reversal of the normal cervical lordosis. Moderate disc height loss at C6-7, C7-T1 and C5-6. Mild facet arthrosis, most prominent of the right side of C4-5 and C5-6. Soft tissues: No prevertebral soft tissue swelling. IMPRESSION: Moderate, multilevel degenerative disc disease and right greater than left facet arthrosis. Dictated by: Paramjit Galeana M.D. on 01/13/2024 at 12:02 Approved by: Paramjit Galeana M.D. on 01/13/2024 at 12:04
[2024-01-13] MEDS: KETOROLAC 30 MG/ML VIAL IM (11:40)
[2024-01-13 12:33] VITALS: BP 143/90; PULSE 79; RESP 14; O2SAT 98
== END 2024-01-13 12:35 | disposition home or self-care (01) ==
PROVIDERS: Emergency Provider Physician Assistant; PCP Family Medicine
DX: G44.221 Chronic tension-type headache, intractable (principal); S16.1XXA Strain of muscle, fascia and tendon at neck level, initial encounter
CPT/HCPCS: 72040; 96372; 99283; J1885

== ENCOUNTER → 2024-01-16 10:49 | Outpatient (CLI) | payer OTHER, SELFPAY ==
--- NOTE | 2024-01-16 10:50 | DI.MRI.S_ITS ---
PROCEDURE: MR HEAD/BRAIN WO CON INDICATIONS: Worsening/continued headaches TECHNIQUE: Noncontrast axial T1 spin echo, axial T2 fast spin echo, sagittal and axial FLAIR, coronal T2 fast spin echo, axial gradient echo, axial diffusion and ADC through the brain. COMPARISON: None. FINDINGS: Image quality: Excellent. CSF Spaces: Basal cisterns are patent. No extra-axial fluid collections. Ventricles are normal in size and shape. Brain: No intracranial masses or hemorrhage. Sabillon/white matter interface is normal. Brainstem appears normal. Diffusion-weighted images demonstrate no acute infarct. No chronic ischemic insults. Normal intravascular flow voids are present. Skull and face: Calvarium has normal marrow signal. Orbits appear normal. Sinuses: Moderate mucosal thickening of the right maxillary sinus. Small mucous retention cysts within the left maxillary sinus. Otherwise, the paranasal sinuses are clear. The mastoids are clear. IMPRESSION: No cause for patient's symptoms is identified. No acute intracranial abnormalities. Dictated by: Mark Anthony Yates M.D. on 01/17/2024 at 9:54 Approved by: Mark Anthony Yates M.D. on 01/17/2024 at 9:57
== END ==
LOC: MRI 10:49
PROVIDERS: PCP Family Medicine; Referring Provider Family Medicine; Visit Provider Family Medicine
DX: G44.229 Chronic tension-type headache, not intractable (principal); G43.909 Migraine, unspecified, not intractable, without status migrainosus
CPT/HCPCS: 70551

== ENCOUNTER → 2024-02-17 11:04 | Outpatient (CLI) | payer OTHER, SELFPAY ==
[2024-02-17 11:52] LABS: Add Manual Diff / Slide Review NO; Basophils Absolute Auto 0 /uL (0-100); Basophils Percent Auto 0.8 % (0-2); Eosinophils Absolute Auto 100 /uL (0-450); Eosinophils Percent Auto 1.1 % (2-4); Hematocrit 40.5 % (36-46); Hemoglobin 13.7 g/dL (12.0-16.0); Lymphocytes Absolute Auto 1300 /uL (1100-4500); Lymphocytes Percent Auto 28.3 % (25-40); Mean Corpuscular HGB Conc 33.8 % (30-36); Mean Corpuscular Volume 100.5 fL (80-100); Monocytes Absolute Auto 400 /uL (0-900); Monocytes Percent Auto 9.3 % (3-14); Neutrophils Absolute Auto 2800 /uL (1500-7000); Neutrophils Percent Auto 60.5 % (50-75); Platelet Count 232 X10^3/uL (150-400); Red Blood Cell Count 4.03 X10^6/uL (4.0-5.2); Red Cell Distribution Width 13.8 % (11.6-14.8); White Blood Cell Count 4.6 X10^3/uL (4.5-11.0)
[2024-02-17 12:10] LABS: Erythrocyte Sedimentation Rate 2 MM/HR (0-20)
[2024-02-17 12:30] LABS: BUN Creatinine Ratio 17.1 (6-22); Blood Urea Nitrogen 12 mg/dL (7-17); C-Reactive Protein Quant < 0.5 mg/dL (<1.0); Calcium 8.7 mg/dL (8.4-10.2); Carbon Dioxide 28 mmol/L (22-32); Chloride 105 mmol/L (98-107); Estimated Glomerular Filt Rate > 60 mL/min (>60); Glucose 82 mg/dL (70-100); HEMOLYSIS < 15 (0-50); Sodium 138 mmol/L (137-145)
[2024-02-17 13:01] LABS: TSH w/ Reflex to FT4 1.05 uIU/mL (0.47-4.68)
[2024-02-17 13:07] LABS: Hemoglobin A1C% w Est Avg Glu 4.8 % (4.0-6.0)
[2024-02-18 05:26] LABS: Toxoplasma gohndii IgG <3.0 IU/mL (0.0-7.1); Toxoplasma gondii IgM <3.0 AU/mL (0.0-7.9)
[2024-02-21 12:37] LABS: 18 kD IgG Band Absent (.); 23 kD IgG Band Absent (.); 28 kD IgG Band Absent (.); 30 kD IgG Band Absent (.); 39 kD IgG Band Absent (.); 41 kD IgG Bands Absent (.); 45 kD IgG Band Absent (.); 58 kD IgG Band Absent (.); 66 kD IgG Band Absent (.); IgG P93 AB Absent (.); IgM P23 AB Absent (.); IgM P39 AB Absent (.); IgM P41 AB Absent (.); Lyme IgG Line Blot Interpretat Negative (.); Lyme IgM Line Blot Interpretat Negative (.)
[2024-02-23 16:57] LABS: ANA Screen, IFA Negative (.)
== END ==
PROVIDERS: PCP Family Medicine; Referring Provider Family Medicine; Visit Provider Family Medicine
DX: G43.909 Migraine, unspecified, not intractable, without status migrainosus (principal); R73.9 Hyperglycemia, unspecified; H53.9 Unspecified visual disturbance; M25.60 Stiffness of unspecified joint, not elsewhere classified; M25.40 Effusion, unspecified joint; L28.1 Prurigo nodularis; R73.01 Impaired fasting glucose
CPT/HCPCS: 36415; 80048; 83036; 84443; 85025; 85651; 86038; 86140; 86617; 86664; 86777; 86778

== ENCOUNTER → 2025-06-05 13:37 | Outpatient (CLI) | payer OTHER, SELFPAY ==
[2025-06-05 13:59] LABS: Add Manual Diff / Slide Review NO; Hematocrit 40.8 % (36-46); Hemoglobin 14.2 g/dL (12.0-16.0); Lymphocytes Absolute Auto 1300 /uL (1100-4500); Mean Corpuscular HGB Conc 34.8 % (30-36); Mean Corpuscular Hemoglobin 35.8 PG (26-34); Mean Corpuscular Volume 102.9 fL (80-100); Platelet Count 168 X10^3/uL (150-400)
[2025-06-05 14:24] LABS: Alanine Aminotransferase 26 IU/L (<35); Albumin 4.7 g/dL (3.5-5.0); Albumin Globulin Ratio 1.8 (1.0-2.8); Alkaline Phosphatase 76 U/L (38-126); Blood Urea Nitrogen 5 mg/dL (7-17); Calcium 9.5 mg/dL (8.4-10.2); Carbon Dioxide 26 mmol/L (22-32); Chloride 100 mmol/L (98-107); Cholesterol 234 mg/dL (140-199); Estimated Glomerular Filt Rate > 60 mL/min (>60); Globulin 2.6 g/dL (1.7-4.1); Glucose 92 mg/dL (70-99); HEMOLYSIS < 15 (0-50); Potassium 4.1 mmol/L (3.4-5.1); Sodium 133 mmol/L (137-145); Total Protein 7.3 g/dL (6.3-8.2); Triglycerides 70 mg/dL (35-150)
[2025-06-05 14:32] LABS: HDL Cholesterol 189 mg/dL (40-60)
[2025-06-05 14:54] LABS: TSH w/ Reflex to FT4 2.08 uIU/mL (0.47-4.68)
== END ==
PROVIDERS: PCP Family Medicine; Referring Provider Family Medicine; Visit Provider Family Medicine
DX: F90.9 Attention-deficit hyperactivity disorder, unspecified type (principal); G43.909 Migraine, unspecified, not intractable, without status migrainosus; L30.9 Dermatitis, unspecified
CPT/HCPCS: 36415; 80053; 80061; 84443; 85025

== ENCOUNTER → 2025-06-07 14:51 | Outpatient (CLI) | payer OTHER, SELFPAY ==
[2025-06-07 15:49] LABS: INR 1.0 (0.9-1.3); Prothrombin Time 11.3 SECONDS (9.4-12.5)
[2025-06-07 15:52] LABS: HEMOLYSIS < 15 (0-50); Iron 113 ug/dL (37-170); PTT Partial Thromboplastin Tim 28 SECONDS (25.1-36.5)
[2025-06-07 15:57] LABS: Gamma Glutamyl Transpeptidase 162 U/L (12-43)
[2025-06-07 16:03] LABS: Percent Iron Saturation 44 % (15-50); Total Iron Binding Capacity 254 ug/dL (265-497); Transferrin 243 mg/dL (206-381)
== END ==
PROVIDERS: PCP Family Medicine; Referring Provider Physician Assistant; Visit Provider Physician Assistant
DX: R16.0 Hepatomegaly, not elsewhere classified (principal); K76.0 Fatty (change of) liver, not elsewhere classified; L29.9 Pruritus, unspecified; G44.229 Chronic tension-type headache, not intractable
CPT/HCPCS: 36415; 82977; 83540; 83550; 83615; 85610; 85651; 85730; 86140

== ENCOUNTER → 2025-07-09 16:38 | Outpatient (CLI) | payer OTHER, SELFPAY ==
[2025-07-09 17:08] LABS: Add Manual Diff / Slide Review NO; Hematocrit 38.4 % (36-46); Hemoglobin 13.0 g/dL (12.0-16.0); Lymphocytes Absolute Auto 1600 /uL (1100-4500); Mean Corpuscular HGB Conc 33.9 % (30-36); Mean Corpuscular Hemoglobin 35.1 PG (26-34); Mean Corpuscular Volume 103.6 fL (80-100); Platelet Count 162 X10^3/uL (150-400)
[2025-07-09 17:31] LABS: Alanine Aminotransferase 20 IU/L (<35); Albumin 4.6 g/dL (3.5-5.0); Albumin Globulin Ratio 2.1 (1.0-2.8); Alkaline Phosphatase 69 U/L (38-126); Blood Urea Nitrogen 5 mg/dL (7-17); Calcium 9.6 mg/dL (8.4-10.2); Carbon Dioxide 26 mmol/L (22-32); Chloride 98 mmol/L (98-107); Cholesterol 192 mg/dL (140-199); Estimated Glomerular Filt Rate > 60 mL/min (>60); Gamma Glutamyl Transpeptidase 177 U/L (12-43); Globulin 2.2 g/dL (1.7-4.1); Glucose 94 mg/dL (70-99); HEMOLYSIS < 15 (0-50); Potassium 3.4 mmol/L (3.4-5.1); Sodium 134 mmol/L (137-145); Total Protein 6.8 g/dL (6.3-8.2); Triglycerides 156 mg/dL (35-150)
[2025-07-09 17:48] LABS: HDL Cholesterol 122 mg/dL (40-60)
[2025-07-09 18:19] LABS: Vitamin B12 248 pg/mL (239-931)
[2025-07-14 16:08] LABS: ANA Screen, IFA Negative (.)
== END ==
PROVIDERS: PCP Family Medicine; Referring Provider Family Medicine; Visit Provider Family Medicine
DX: K76.0 Fatty (change of) liver, not elsewhere classified (principal); R16.0 Hepatomegaly, not elsewhere classified; F41.9 Anxiety disorder, unspecified; L29.9 Pruritus, unspecified; G44.229 Chronic tension-type headache, not intractable; G43.909 Migraine, unspecified, not intractable, without status migrainosus
CPT/HCPCS: 36415; 80053; 80061; 82607; 82977; 85025; 86038

== ENCOUNTER → 2025-07-11 16:22 | Outpatient (CLI) | payer OTHER, SELFPAY | PROVIDERS: PCP Family Medicine; Referring Provider Family Medicine; Visit Provider Family Medicine | DX: K76.0 Fatty (change of) liver, not elsewhere classified (principal); R16.0 Hepatomegaly, not elsewhere classified; F41.9 Anxiety disorder, unspecified; G44.229 Chronic tension-type headache, not intractable; L29.9 Pruritus, unspecified; G43.909 Migraine, unspecified, not intractable, without status migrainosus; R19.5 Other fecal abnormalities | CPT/HCPCS: 87177 ==

== ENCOUNTER 2025-08-13 18:38 | Emergency (ER) | payer OTHER, SELFPAY ==
[2025-08-13 18:48] VITALS: BP 139/78; PULSE 85; RESP 18; TEMP 36.8; O2SAT 97; BMI 22.8
--- NOTE | 2025-08-13 19:03 | DI.RAD.S_ITS ---
PROCEDURE: XR CHEST 1V INDICATIONS: Chest Pain TECHNIQUE: One view of the chest was acquired. COMPARISON: None. FINDINGS: Surgical changes and devices: None. Lungs and pleura: Lungs are clear. No pleural effusions or pneumothorax. Mediastinum: Mediastinal contours appear normal. Heart size is normal. Bones and chest wall: No suspicious bony lesions. Overlying soft tissues appear unremarkable. IMPRESSION: No acute cardiopulmonary abnormality is seen. Dictated by: Mark Anthony Yates M.D. on 08/13/2025 at 19:46 Approved by: Mark Anthony Yates M.D. on 08/13/2025 at 19:46
--- NOTE | 2025-08-13 19:08 | DI.CT.S_ITS ---
PROCEDURE: CT FACIAL BONES WO CON INDICATIONS: fall vs other TECHNIQUE: Noncontrast 2.5 mm thick axial images acquired from the mandible through the frontal sinuses, with coronal and sagittal reformatting. For radiation dose reduction, the following was used: automated exposure control, adjustment of mA and/or kV according to patient size. COMPARISON: None. FINDINGS: Image quality: Excellent. Bones and teeth: Orbital roldan are intact. Sinus roldan show no fracture or deformity. Nasal bones and septum are intact. Visualized portions of the mandible demonstrate no fractures or subluxation. Zygomatic arches are intact. Pterygoid plates are intact. Visualized portions of the skull base and auditory canals are intact. Sinuses: Paranasal sinuses are aerated, without fluid levels, mucosal thickening, or mucoceles. Mastoid air cells are aerated. Soft tissues: No edema, masses, or fluid collections. No enlarged lymph nodes. No soft tissue lacerations or debris. Vascular: Visualized vascular structures appear normal in the absence of contrast. Bony vascular foramina and canals are intact. IMPRESSION: No acute facial fractures. Dictated by: Mark Anthony Yates M.D. on 08/13/2025 at 19:48 Approved by: Mark Anthony Yates M.D. on 08/13/2025 at 19:50
--- NOTE | 2025-08-13 19:08 | DI.CT.S_ITS ---
PROCEDURE: CT CERVICAL SPINE WO CON INDICATIONS: fall vs other TECHNIQUE: Noncontrast 3 mm thick sections acquired from the skull base to the T4 level. Sagittal and coronal reformats were then constructed. For radiation dose reduction, the following was used: automated exposure control, adjustment of mA and/or kV according to patient size. COMPARISON: None. FINDINGS: Image quality: Excellent. Bones: No fractures or dislocations. Degenerative changes, most pronounced at C5-C6 and C6-C7. Visualized superior ribs are intact. Soft tissues: Prevertebral soft tissues are normal in thickness. No paravertebral hematomas. No apical pneumothoraces. IMPRESSION: No displaced fracture or traumatic subluxation. Dictated by: Mark Anthony Yates M.D. on 08/13/2025 at 19:50 Approved by: Mark Anthony Yates M.D. on 08/13/2025 at 19:52
--- NOTE | 2025-08-13 19:08 | DI.CT.S_ITS ---
PROCEDURE: CT HEAD/BRAIN WO CON INDICATIONS: fall vs other TECHNIQUE: Noncontrast 4.5 mm thick angled axial sections acquired from the foramen magnum to the vertex, with coronal and sagittal reformats. For radiation dose reduction, the following was used: automated exposure control, adjustment of mA and/or kV according to patient size. COMPARISON: None. FINDINGS: Image quality: Diagnostic. CSF spaces: Basal cisterns are patent. No extra-axial fluid collections. Ventricles are normal in size and shape. Brain: No midline shift. No intracranial mass effect or hemorrhage. Sabillon- white matter interface is normal. Skull and face: Calvarium and visualized facial bones are intact, without suspicious lesions. Sinuses: Visualized sinuses and mastoids are clear. IMPRESSION: No acute intracranial pathology. Dictated by: Mark Anthony Yates M.D. on 08/13/2025 at 19:47 Approved by: Mark Anthony Yates M.D. on 08/13/2025 at 19:48
--- NOTE | 2025-08-13 19:17 | PC.NURSE ---
Pt from triage to imaging via ED wheelchair with technical supervisor. Pt currently refusing lab work.
--- NOTE | 2025-08-13 19:17 | ED.FALL ---
HPI - Fall General Chief Complaint: Fall Stated Complaint: Fell and hit head/Possible Concussion Time Seen by Provider: 08/13/25 19:08 Source: patient, family (Spouse), RN notes reviewed and old records reviewed Mode of arrival: Wheelchair Limitations: no limitations History of Present Illness HPI Narrative: 44-year-old female history of anxiety disorder, migraines presents with complaint of potential fall. Patient states does not recall but last night sometime between 9:00 p.m. and 130 in the morning she thinks that she had a fall she does not recall the events she has a bruising onto her left and bruising on her shoulder and describes hurting all over. She has a headache. She states she does not recall what happened her has been states he got up in the morning saw that there was a eggs and various things on the floor that she had picked up. He states he got back this evening and states she is still did not quite seem right so brought her in for evaluation. Patient describes headache, she describes some neck pain, some facial discomfort. Patient denies chest pain or shortness of breath. She has had some nausea and vomiting 3 or 4 times this evening. Denies any incontinence of bowel or bladder at any point. Denies any weakness but notes numbness and tingling of her extremities. She states she does smoke daily she does drink alcohol states a couple drinks most days. Denies any recreational drugs. She states that she feels safe in her home denies any concerns for on any trauma or domestic violence. She is quite adamant she does not want labs drawn. She is alert, appropriate able to answer all questions appropriately. She is unsure of her tetanus status. Related Data Home Medications ?Medication ?Instructions ?Recorded ?Confirmed levonorgestrel (Mirena) intrauterine 06/07/25 07/09/25 Previous Rx's ?Medication ?Instructions ?Recorded epinephrine 0.3 mg/0.3 mL 0.3 mg (0.3 mL) IM Q5-15M PRN 08/12/23 injection, auto-injector (EpiPen) anaphylaxis #2 ea omeprazole 20 mg capsule,delayed 20 mg PO DAILY #90 caps 08/10/24 release zolmitriptan 5 mg tablet See Rx Instructions PO .COMPLEX 06/07/25 #10 tabs buspirone 5 mg tablet 10 mg (2 x 5 mg) PO BID #120 tabs 07/09/25 Allergies Allergy/AdvReac Type Severity Reaction Status Date / Time No Known Drug Allergies (NO Allergy Unknown Verified 08/13/25 18:48 KNOWN DRUG ALLERGIES) Review of Systems Review of Systems ROS Unobtainable: All systems reviewed & are unremarkable except as noted in HPI and below Patient History Medical History Prurigo nodularis Pruritus Nausea Diarrhea Shoulder pain, right Itching Delusions of parasitosis Scabies Acne Anorexia nervosa Headache Fractures Foot pain Chronic back pain Ankle pain MRSA (methicillin resistant Staphylococcus aureus) Chicken pox Painful menstrual periods Ovarian cyst Heavy menstrual period Abnormal Pap smear of cervix Eczema Migraine ADHD Surgical History Delivered by section Social History Smoking Status: Current every day smoker Smoking Status: Current every day smoker tobacco type: vaping alcohol intake frequency: holidays/special occasions only Exam Narrative Exam Narrative: GEN: Patient appears in mild distress. HEAD: Patient has lower periorbital ecchymosis on the left, no raccoon/Ndiaye sign. NECK: Nontender, painless range of motion, trachea midline , negative Nexus criteria, no midline line tenderness, distracting injury, altered mental status, neuro deficit, recent EtOH. EYES: PERRLA, EOMI ENT: External inspection normal, trachea is midline, TM's are normal no hemotypanum, Nares are clear, no septal hematoma, no dental or oral injury, airway is normal and with normal occlusion, No bony tenderness RESP: Chest is nontender and has symmetric movement, no ecchymosis, breath sounds are normal no crackles, wheezes or rales CVS: Heart sounds are normal, no murmur noted, No JVD. ABG/GI: Nontender, soft, normal bowel sounds, no distention, no organomegaly, pelvic rock is negative NEURO: Oriented AOx3, neuro is grossly intact, sensation and motor is normal all 4 extremities moving, cranial nerves II through XII are intact, GCS is 15 PSYCH: Normal mood and affect SKIN: Intact, warm and dry, no crepitus and without decubitus BACK: No CVA tenderness, no vertebral tenderness, no step-off's, no crepitus EXT: Atraumatic except for abrasion of the left finger, patient has full range of motion no bony tenderness., hips are nontender, no pedal edema, normal color and temperature, normal range of motion of extremities with normal tendon exam, 2+ pulses in all four extremities Initial Vital Signs Initial Vital Signs: Vital Signs Temperature 98.3 F 08/13/25 18:48 Pulse Rate 85 08/13/25 18:48 Respiratory Rate 18 08/13/25 18:48 Blood Pressure 139/78 08/13/25 18:48 Pulse Oximetry 97 08/13/25 18:48 Oxygen Delivery Method Room Air 08/13/25 18:48 Course Orders Ordered: ED Orders 08/13/25 19:03 XR chest 1V Stat 08/13/25 19:08 CT cervical spine wo con Stat CT facial bones wo con Stat CT head/brain wo con Stat Discontinued Medications Diphtheria/Tetanus/Acell Pertussis (Tet,Diph,Pertuss(Acell),Vac/Pf 0.5 Ml Syringe) 0.5 ml IM .ONCE ONE Stop: 08/13/25 19:22 Vital Signs Vital signs: Vital Signs - 8 hr 08/13/25 18:48 Temperature 98.3 F Pulse Rate 85 Respiratory Rate 18 Blood Pressure 139/78 Pulse Oximetry 97 Oxygen Delivery Method Room Air MDM - Fall MDM Narrative Medical decision making narrative: 44-year-old female unclear if patient possibly had a fall and hit her head and had loss of consciousness versus seizure activity versus other potential causes. She notes she has thrown up several times today does have a history of migraines as well but does has a loss of time. This was last night between 9 and 1:30 a.m.. She has had persistent symptoms so she presents to the department. Patient has a alert, appropriate appears competent to make decisions she is agreeable to imaging but it is very reluctant to have any additional blood work even after discussion with her and her . Tetanus ordered. Head CT shows no acute change, CTs cervical spine shows no acute change no displaced fracture or traumatic subluxation. CT facial bones is negative for acute facial fractures. Chest x-ray shows no acute cardiopulmonary abnormality. Discussed with the patient again that I would recommend that she had blood work to evaluate for possible other sources of her fall versus syncope versus seizure activity. She does note family history of epilepsy but no known history herself. No new medication. Patient left without waiting for her results. Discharge Plan Departure Patient Disposition: Left Against Medical Advice Clinical Impression: Periorbital ecchymosis of left eye Activity Restrictions/Additional Instructions: Your imaging today does not show any bleeding in the brain, no breaks or fractures in the bones of the head face or neck. It is recommended that you have lab work to further evaluate the source of your loss of consciousness possibilities include seizure activity, syncope, or other possible emergent causes. You can return at any time for re-evaluation. Please return for severe headaches, fevers, any changes to mentation, persistent vomiting, lightheadedness or passing out or other new or concerning changes. Prescriptions: No Action omeprazole 20 mg capsule,delayed release(DR/EC) 20 mg PO DAILY Qty: 90 1RF Mirena 21 mcg/24hr (up to 8 yrs) 52 mg intrauterine device intrauterine zolmitriptan 5 mg tablet See Rx Instructions PO .COMPLEX Qty: 10 1RF Rx Instructions: take 1 tab at onset of headache; if no relief, may repeat 1 tab after at least 2 hrs; max = 2 tabs/24 hrs PO buspirone 5 mg tablet 10 mg PO BID Qty: 120 1RF epinephrine [EpiPen] 0.3 mg/0.3 mL auto-injector 0.3 mg IM Q5-15M PRN (Reason: anaphylaxis) Qty: 2 0RF Rx Instructions: do not exceed 3 doses per episode Referrals: Bill Pineda MD [Primary Care Provider, Family Practice] Stand Alone Forms: Patient Portal/API, Against Med. Advice (Uzbek)
== END 2025-08-13 21:47 | disposition left against medical advice (07) ==
PROVIDERS: Emergency Provider Emergency Medicine; PCP Family Medicine
DX: S00.12XA Contusion of left eyelid and periocular area, initial encounter (principal); Z53.29 Procedure and treatment not carried out because of patient's decision for other reasons; R51.9 Headache, unspecified; M54.2 Cervicalgia; R11.2 Nausea with vomiting, unspecified; X58.XXXA Exposure to other specified factors, initial encounter; S40.012A Contusion of left shoulder, initial encounter
CPT/HCPCS: 70450; 70486; 71045; 72125; 99281; 99284

== ENCOUNTER → 2025-08-15 14:24 | Outpatient (CLI) | payer OTHER, SELFPAY ==
[2025-08-15 14:53] LABS: Add Manual Diff / Slide Review NO; Hematocrit 41.2 % (36-46); Hemoglobin 14.0 g/dL (12.0-16.0); Lymphocytes Absolute Auto 1300 /uL (1100-4500); Mean Corpuscular HGB Conc 34.1 % (30-36); Mean Corpuscular Hemoglobin 35.2 PG (26-34); Mean Corpuscular Volume 103.2 fL (80-100); Platelet Count 168 X10^3/uL (150-400)
[2025-08-15 15:24] LABS: Alanine Aminotransferase 23 IU/L (<35); Albumin 4.8 g/dL (3.5-5.0); Albumin Globulin Ratio 1.7 (1.0-2.8); Alkaline Phosphatase 61 U/L (38-126); Blood Urea Nitrogen 7 mg/dL (7-17); Calcium 9.8 mg/dL (8.4-10.2); Carbon Dioxide 27 mmol/L (22-32); Chloride 101 mmol/L (98-107); Estimated Glomerular Filt Rate > 60 mL/min (>60); Gamma Glutamyl Transpeptidase 220 U/L (12-43); Globulin 2.9 g/dL (1.7-4.1); Glucose 109 mg/dL (70-99); HEMOLYSIS < 15 (0-50); Potassium 3.3 mmol/L (3.4-5.1); Sodium 137 mmol/L (137-145); Total Protein 7.7 g/dL (6.3-8.2)
== END ==
PROVIDERS: PCP Family Medicine; Referring Provider Family Medicine; Visit Provider Family Medicine
DX: L29.9 Pruritus, unspecified (principal); R16.0 Hepatomegaly, not elsewhere classified; K76.0 Fatty (change of) liver, not elsewhere classified; R19.7 Diarrhea, unspecified; R19.5 Other fecal abnormalities; L74.9 Eccrine sweat disorder, unspecified
CPT/HCPCS: 36415; 80053; 82977; 85025